=== PATIENT | female | born 1970 | race Caucasian/White ===

== ENCOUNTER 2024-10-08 11:05 | Emergency (ER) | payer OTHER, SELFPAY ==
--- OUTSIDE RECORDS SUMMARY | 2024-10-08 11:33 | XMS_ITS | Data Portability ---
Author Organization [place] - [facility] [employer] [employer] [facility] Address [address] [place] [address] Care Team Providers [employer] Name Role Phone MAYCOL MURILLO Primary Care Provider [facility] Medical Oncologist ARMANDO DE LA GARZA Urologist [facility] Neur ologist HANK Optician Assessment Encounter Date Assessment Date Assessment LastModified by Organization Details LastModified Time 12/11/2022 12/11/2022 52 y/o female pt that presents to establish care from and transfer from Mariam Castillo APN. PMH: bilateral mastectomy 07/02/2018, radiation 2019 with breast cancer, migraine headaches, and THOR. Enouraged pt to bring in copy of her most recent labs for review. Not available 12/11/2022 16:24:15 01/22/2023 01/22/2023 52 y/o female pt that presents to f/u on starting lexapro. PMH: bilateral mastectomy 07/02/2018, radiation 2019 with breast cancer, migraine headaches, and THOR. to f/u in 4-6 weeks for efficacy of wellbutrin. Not available 01/22/2023 12:17:58 04/05/2023 04/05/2023 52 y/o female pt that presents to f/u on starting bupropion. PMH: bilateral mastectomy 07/02/2018, radiation 2019 with breast cancer, migraine headaches, and THOR. pt to f/u in 3 months or sooner as needed for efficacy of increase her bupropion. Not available 04/05/2023 14:41:07 07/12/2023 07/12/2023 53 y/o female pt that presents to f/u on starting bupropion. PMH: bilateral mastectomy 07/02/2018, radiation 2019 with breast cancer, migraine headaches, and HTOR. Pt to f/u in 3-6 months. Not available 07/12/2023 13:54:43 04/02/2024 04/02/2024 53 y/o female pt that presents to f/u on starting bupropion. PMH: bilateral mastectomy 07/02/2018, radiation 2019 with breast cancer, migraine headaches, and THOR. Pt to f/u in 3-6 months. Not available 04/02/2024 11:32:00 Plan of Treatment Reminders Order Date Submit Date Provider Last Modified By Organization Details Last Modified Time Details Appointments None recorded. Lab urinalysis complete, reflex culture 2022 023 [email or web address] [employer] [facility], [address], [address], [place], [address], 3 15:50:41 pro BNP (pro B-type natriuretic peptide), serum or plasma 2023 024 SANDIEDeal Decor [facility], [address] [facility] [address], [address], [place], [address], 4 06:47:31 TSH + free T4, serum 2023 024 [employer] [facility], [address] [facility] [address], [place], [place], [address], 4 01:49:00 Referral None recorded. Procedures None recorded. Surgeries None recorded. Imaging None recorded. Medication Orders escitalopra m 10 mg tablet 2022 023 [facility], [address] [place] [address], [place], [address], 3 16:21:26 bupropion HCl XL 150 mg 24 hr tablet, extended release 2022 023 [email or web address] 0 [facility], [address] [place] [address], [address], 4 10:54:52 bupropion HCl XL 150 mg 24 hr tablet, extended release 2022 023 [email or web address] 0 [facility], [address] [place] [address], [address], 4 10:54:52 Wegovy 1.7 mg/0.75 mL subcutaneou s pen injector 2022 023 [email or web address] 0 [facility], [address] [place] [address], [address], 4 10:56:27 Wegovy 0.25 mg/0.5 mL subcutaneou s pen injector 2023 024 [facility], [address] [place] [address], [address], 4 18:01:18 Patient TargetsNo targets recorded. Patient InstructionsNo instructions recorded. Reason for Referral None Reported. Results Created Date Observation Date Name Description Value Unit Range Abnormal Flag Note LastModifiedBy Organization Detail LastModifiedTime 12/12/1912/11/2022 URINA LYSIS W/ MICRO REFLE X C color YELLOW yellow /color les Not Available [facility] (Lab) [address], [place], [address], 12/11/2022 18:11:30 12/12/19 23 12/11/2022 URINA LYSIS W/ MICRO REFLE X C appearance CLEAR clear Not Available [facility] (Lab) [address], [place], [address], 12/11/2022 18:11:30 12/12/19 23 12/11/2022 URINA LYSIS W/ MICRO REFLE X C pH 6 4.8-8. 0 Not Available [facility] (Lab) [address], [place], [address], 12/11/2022 18:11:30 12/12/19 23 12/11/2022 URINA LYSIS W/ MICRO REFLE X C sp gravity urine 1.020 1.015- 1.025 Not Available [facility] (Lab) [address], [place], [address], 12/11/2022 18:11:30 12/12/19 23 12/11/2022 URINA LYSIS W/ MICRO REFLE X C protein NEGATI VE negati ve Not Available [facility] (Lab) [address], [place], [address], 12/11/2022 18:11:30 12/12/19 23 12/11/2022 URINA LYSIS W/ MICRO REFLE X C glucose NEGATI VE negati ve Not Available [facility] (Lab) [address], [place], [address], 12/11/2022 18:11:30 12/12/19 23 12/11/2022 URINA LYSIS W/ MICRO REFLE X C ketone NEGATI VE negati ve Not Available [facility] (Lab) [address], [place], [address], 12/11/2022 18:11:30 12/12/19 23 12/11/2022 URINA LYSIS W/ MICRO REFLE X C bili NEGATI VE negati ve Not Available [facility] (Lab) [address], [place], [address], 12/11/2022 18:11:30 12/12/19 23 12/11/2022 URINA LYSIS W/ MICRO REFLE X C blood NEGATI VE negati ve Not Available [facility] (Lab) [address], [place], [address], 12/11/2022 18:11:30 12/12/19 23 12/11/2022 URINA LYSIS W/ MICRO REFLE X C nitrite NEGATI VE negati ve Not Available [facility] (Lab) [address], [place], [address], 12/11/2022 18:11:30 12/12/19 23 12/11/2022 URINA LYSIS W/ MICRO REFLE X C leukocyte esterase NEGATI VE negati ve Not Available [facility] (Lab) [address], [place], [address], 12/11/2022 18:11:30 12/12/19 23 12/11/2022 URINA LYSIS W/ MICRO REFLE X C urobili 0.2 eu normal /0.2-1 .0 Not Available [facility] (Lab) [address], [place], [address], 12/11/2022 18:11:30 12/12/19 23 12/11/2022 URINA LYSIS W/ MICRO REFLE X C UA micro Y Not Available [facility] (Lab) [address], [place], [address], 12/11/2022 18:11:30 12/12/19 23 12/11/2022 URINA LYSIS W/ MICRO REFLE X C leuk 0 /hpf 0-5 Not Available [facility] (Lab) [address], [place], [address], 12/11/2022 18:11:30 12/12/19 23 12/11/2022 URINA LYSIS W/ MICRO REFLE X C rbcua 0 /hpf 0-3 Not Available [facility] (Lab) [address], [place], [address], 12/11/2022 18:11:30 12/12/19 23 12/11/2022 URINA LYSIS W/ MICRO REFLE X C epith 1-6 /lpf squam Not Available [facility] (Lab) [address], [place], [address], 12/11/2022 18:11:30 12/12/19 23 12/11/2022 URINA LYSIS W/ MICRO REFLE X C casts NEGATI VE /lpf negati ve Not Available [facility] (Lab) [address], [place], [address], 12/11/2022 18:11:30 12/12/19 23 12/11/2022 URINA LYSIS W/ MICRO REFLE X C bacteria TRACE neg-tr mayra Not Available [facility] (Lab) [address], [place], [address], 12/11/2022 18:11:30 12/12/19 23 12/11/2022 URINA LYSIS W/ MICRO REFLE X C crystls NEGATI VE /lpf negati ve Not Available [facility] (Lab) [address], [place], [address], 12/11/2022 18:11:30 12/12/19 23 12/11/2022 URINA LYSIS W/ MICRO REFLE X C mucus 3+ neg-tr mayra Not Available [facility] (Lab) [address], [place], [address], 12/11/2022 18:11:30 12/12/19 23 12/11/2022 URINA LYSIS W/ MICRO REFLE X C other 0 Not Available [facility] (Lab) [address], [place], [address], 12/11/2022 18:11:30 Result Notes None recorded. Problems Name Problem SNOMED Code Status Onset Date Resolution Date Notes Provider Name and Address Organization Details Recorded Time Malignant tumor of breast 787694041 Active 2020 bilateral mastectom y / radiation treatment Not Available [facility] 3 09:29:23 Migraine 00433839 Active 2020 Not Available [facility] 3 09:29:23 Obstructi ve sleep apnea syndrome 47558521 Active 2020 Not Available [facility] 3 09:29:23 Restless legs 23548119 Active 2022 [place], [address] , [facility] 3 15:59:37 Malignant tumor of breast 630527633 Active 2022 [place], [address] , [facility] 3 15:59:56 Anxiety 39030610 Active 2022 [place], [address] , [facility] 3 16:07:09 Cloudy urine 5594823 Active 2022 [place], [address] , [facility] 3 16:17:26 Poor concentra tion 35183076 Active 2022 [place], [address] , [facility] 3 12:10:22 Obstructi ve sleep apnea of adult 32564931766 03 Active 2022 Malathi davis, [facility] 3 12:56:41 Contact dermatiti s caused by urushiol from [facility] micah 403742407 Active 2023 [place], [address] , [facility] 4 11:04:17 Fatigue 91780756 Active 2023 [place], [address] , [facility] 4 11:20:25 Edema of lower extremity 122874723 Active 2023 Maycol Murillo PA-C [address] [place], [address] , [facility] 4 11:30:54 Notes:CAROLA (Dr. De La Garza) Deyanira urned off 2014 Problem Notes None recorded. Procedures Surgical History Date Name Laterality Status Provider Name and Address Organization Details Recorded Time 0 Other completed Not Available [facility] 3 09:30:55 8 Masectomy completed Not Available [facility] 3 09:30:55 8 Breast Surgery completed Not Available [facility] 09/10 09:30:55 8 Breast Implants completed Not Available [facility] 09/10/2022 09:30:55 8 Breast Biopsy completed Not Available [facility] 2022 09:30:55 Kidney/Bladder Surgery completed Not Available [facility] 09/10/2022 09:30:55 Imaging Results None recorded. Procedure Notes None recorded. Medical Equipment None Reported. Allergies Allergen ID Allergen Name Allergen Category Reaction Reaction Severity Criticality Documentation Date Start Date Code Code System Note Provider Name and Address Organization Details Recorded Time 358957 letrozole medicatio n muscle cramps Not available Not available 09/10/2022 89549 RxNorm Not Available [facility] 3 09:30:21 598736 Compazine medicatio n other severe Not available 09/10/20221995 88047 6 RxNorm Not Available [facility] 3 09:30:21 Medications Name Sig Start Date Stop Date Status Note LastModified by Organization Details LastModified Time buspirone 5 mg tablet Take 1 tablet twice a day by oral route for 30 days. 12/11 completed Not Available Not Available Not Available anastrozole 1 mg tablet TAKE ONE Tablet BY MOUTH DAILY 01/03 completed Not Available Not Available Not Available hydrocodone 5 mg-acetamin ophen 325 mg tablet 08/03 completed Not Available Not Available Not Available sumatriptan 25 mg tablet Take one tablet at onset of migraine headache. May repeat dose in 2 hours if needed. active Not Available Not Available No t Available phentermine 37.5 mg tablet TAKE ONE Tablet BY MOUTH IN THE MORNING DIRECTED 01/03 completed Not Available Not Available Not Available triamcinolo ne acetonide 0.1 % topical cream apply A thin layer TO THE AFFECTED AREA topically TWICE DAILY FOR TWO WEEKS active Not Available Not Available No t Available butalbital- acetaminoph en-caffeine 50 mg-325 mg-40 mg tablet TAKE ONE Tablet BY MOUTH EVERY TWELVE HOURS NEEDED FOR HEADACHE OR FOR MIGRAINE DIRECTED 01/03 completed Not Available Not Available Not Available ketorolac 10 mg tablet Take 1 tablet (10 mg total) by mouth every 6 (six) hours as needed (migraine ) active Not Available Not Available No t Available metoclopram alla 5 mg tablet TAKE ONE Tablet BY MOUTH EVERY 6 HOURS as needed for nausea AND FOR MIGRAINE 04/05 completed Not Available Not Available Not Available exemestane 25 mg tablet Take 1 tablet (25 mg total) by mouth daily Take after a meal. active Not Available Not Available No t Available imiquimod 5 % topical cream packet USE 5x/week FOR 6 WEEKS 08/03 completed Not Available Not Available Not Available nortriptyli ne 10 mg capsule TAKE ONE CAPSULE BY MOUTH EVERY DAY AT BEDTIME AFTER 2 WEEKS MAY INCREASE TO 2 EVERY DAY AT BEDTIME IF NEEDED/TO LERATED 06/22 completed Not Available Not Available Not Available cyanocobala min (vit B-12) 1,000 mcg/mL injection solution INJECT 1ml INTRAMUSC ULARLY ONCE WEEKLY DIRECTED 07/12 completed Not Available Not Available Not Available triamcinolo ne acetonide 55 mcg nasal spray aerosol USE 1 SPRAY IN EACH NOSTRIL ONCE DAILY 04/02 completed Not Available Not Available Not Available gabapentin 300 mg capsule TAKE ONE CAPSULE BY MOUTH AT BEDTIME active Not Available Not Available No t Available gabapentin 100 mg capsule TAKE 1 TO 2 CAPSULES BY MOUTH EVERY DAY AT BEDTIME 04/05 completed Not Available Not Available Not Available ergocalcife rol (vitamin D2) 1,250 mcg (50,000 unit) capsule TAKE ONE CAPSULE BY MOUTH ONCE A WEEK 04/02 completed Not Available Not Available Not Available letrozole 2.5 mg tablet Take 1 tablet (2.5 mg total) by mouth daily 06/22 completed Not Available Not Available Not Available sertraline 50 mg tablet TAKE ONE Tablet BY MOUTH DAILY 01/03 completed Not Available Not Available Not Available tamoxifen 20 mg tablet Take 1 tablet (20 mg total) by mouth daily 01/22 completed Not Available Not Available Not Available rizatriptan 5 mg tablet Take 1 tablet (5 mg total) by mouth once as needed for migraine May repeat in 2 hours if unresolve d. Do not exceed 3 in 24 hours. active Not Available Not Available No t Available escitalopra m 10 mg tablet take 1 tablet once daily active Not Available Not Available No t Available bupropion HCl XL 150 mg 24 hr tablet, extended release take 1 tablet once daily active Not Available Not Available No t Available duloxetine 20 mg capsule,del ayed release Take 1 capsule every day by oral route at bedtime for 30 days. active Not Available Not Available No t Available duloxetine 30 mg capsule,del ayed release TAKE ONE CAPSULE BY MOUTH NIGHTLY 04/25 completed Not Available Not Available Not Available Acidophilus 100 m org. 08/03 completed Not Available Not Available Not Available alpha lipoic acid 200 mg 08/03 completed Not Available Not Available Not Available cholecalcif [place] (vitamin D3) 1,250 mcg (50,000 unit) capsule TAKE ONE CAPSULE BY MOUTH ONCE A WEEK IN addition TO over counter 4,000 UNITS DAILY active Not Available Not Available No t Available D3-2000 4000 units total 2020 active Not Available Not Available Not Avai lable B12 1000 ncg 08/03 completed Not Available Not Available Not Available bupropion HCl 150 mg tablet,12 hr sustained-r elease(smok ing deterrent) Take 2 tablets every day by oral route. active Not Available Not Available No t Available Xhance 93 mcg/actuati on breath activated aerosol active Not Available Not Available Not Available Ubrelvy 100 mg tablet TAKE AT ONSET OF MIGRAINE HEADACHE. MAY REPEAT DOSE X 1 IN 2 HOURS. DO NOT EXCEED 2 DOSES IN 1 DAY 01/22 completed Not Available Not Available Not Available Wegovy 1.7 mg/0.75 mL subcutaneou s pen injector INJECT 1.7 MG UNDER THE SKIN EVERY WEEK 04/02 completed Not Available Not Available Not Available Wegovy 1 mg/0.5 mL subcutaneou s pen injector Inject 1 mg every week by subcutane ous route for 90 days. active Not Available Not Available No t Available Wegovy 0.25 mg/0.5 mL subcutaneou s pen injector INJECT 0.25 MG UNDER THE SKIN EVERY WEEK active Not Available Not Available No t Available Wegovy 0.5 mg/0.5 mL subcutaneou s pen injector Inject 0.5 mg every week by subcutane ous route. 2023 active Not Available Not Available Not Avai lable Vitals Date Recorded Body height Body weight Body temperature Heart rate Respiratory rate Oxygen saturation Oxygen saturation in Arterial blood by Pulse oximetry Pain severity - 0-10 verbal numeric rating [Score] - Reported Systolic blood pressure Diastolic blood pressure Provider Name and Address Organization Details Last Updated DateTime 3 165.1 cm 11437.4 5 g 97.9 [degF] 93 /min 18 /min 98 % 98 % 0 102 mm[Hg] 58 mm[Hg] [facility] 3 15:40:46 Date Recorded Body height Body mass index (BMI) Body weight Body temperature Heart rate Respiratory rate Oxygen saturation Oxygen saturation in Arterial blood by Pulse oximetry Systolic blood pressure Diastolic blood pressure Provider Name and Address Organization Details Last Updated DateTime 3 165.1 cm 23.3 kg/m2 77149.0 1 g 98 [degF] 76 /min 18 /min 98 % 98 % 110 mm[Hg] 75 mm[Hg] Brittany Stubbs [place] [facility] 3 11:27:25 Date Recorded Body height Body mass index (BMI) Body weight Body temperature Heart rate Respiratory rate Oxygen saturation Oxygen saturation in Arterial blood by Pulse oximetry Systolic blood pressure Diastolic blood pressure Provider Name and Address Organization Details Last Updated DateTime 3 165.1 cm 24.1 kg/m2 66219.8 9 g 97.5 [degF] 88 /min 18 /min 98 % 98 % 102 mm[Hg] 72 mm[Hg] Lona Last [facility] 3 14:26:01 Date Recorded Body height Body mass index (BMI) Body weight Body temperature Heart rate Respiratory rate Oxygen saturation Oxygen saturation in Arterial blood by Pulse oximetry Pain severity - 0-10 verbal numeric rating [Score] - Reported Systolic blood pressure Diastolic blood pressure Provider Name and Address Organization Details Last Updated DateTime 3 165.1 cm 23.5 kg/m2 33135.5 7 g 97.1 [degF] 82 /min 18 /min 99 % 99 % 0 118 mm[Hg] 68 mm[Hg] [facility] 3 11:28:54 Date Recorded Body height Body mass index (BMI) Body weight Body temperature Heart rate Respiratory rate Oxygen saturation Oxygen saturation in Arterial blood by Pulse oximetry Pain severity - 0-10 verbal numeric rating [Score] - Reported Systolic blood pressure Diastolic blood pressure Provider Name and Address Organization Details Last Updated DateTime 4 165.1 cm 27.6 kg/m2 52715.3 3 g 98 [degF] 91 /min 18 /min 98 % 98 % 0 98 mm[Hg] 68 mm[Hg] [facility] 4 10:53:58 Social History Question Answer Notes LastModified by [employer] ion Details LastModified Time Tobacco Smoking Status Never Smoker Not Available [facility] 09/10/2022 09:30:24 Do You Have An Advance Directive? No [id number] Information not available 09/10/2022 What Is Your Level Of Alcohol Consumption? Occasional [id number] Information not available 09/10/2022 What Is Your Level Of Caffeine Consumption? Moderate [email or web address] Information not available 07/12/2023 How Much Tobacco Do You Chew? None [id number] Information not available 09/10/2022 What Is Your Code Status? Full Code [email or web address] Information not available 04/02/2024 In The 14 Days Before Symptom Onset, Have You Had Close Contact With A Laboratory-confir med COVID-19 While That Case Was Ill? No [id number] Information not available 09/10/2022 In The 14 Days Before Symptom Onset, Have You Had Close Contact With A Person Who Is Under Investigation For COVID-19 While That Person Was Ill? No [id number] Information not available 09/10/2022 What Type Of Diet Are You Following? REGULAR [id number] Information not available 09/10/2022 Do You Or Have You Ever Used E-cigarettes Or Vape? 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 No [id number] Information not available 09/10/2022 Which Of Your Hands Is Dominant? Right [id number] Information not available 09/10/2022 General Stress Level Low [id number] Information not available 09/10/2022 Do You Have A Medical Power Of Eye Care Professional? No [email or web address] Information not available 04/02/2024 What Was The Date Of Your Most Recent Tobacco Screening? 04/02/2024 Information not available 04/02/2024 What Is Your Relationship Status? Information not available 04/02/2024 Do You Or Have You Ever Used Smokeless Tobacco? Never Used Smokeless Tobacco [id number] Information not available 09/10/2022 How Much Tobacco Do You Smoke? No [id number].[id number] Information not available 09/10/2022 Do You Use Any Illicit Or Recreational Drugs? No Information not available 07/12/2023 Do You Use Sunscreen Routinely? Yes [id number] Information not available 09/10/2022 How Many Years Have You Smoked Tobacco? 0 [id number].[id number] Information not available 09/10/2022 Have You Recently Traveled Abroad? No [email or web address] Information not available 12/11/2022 Sex: Female Functional Status Question Answer Note LastModified by Organizat ion Details LastModified Time What is your exercise level? Occasional [id number] Information not available 09/10/2022 Mental Status None recorded. Family History Relationship Description Onset Age of this Age Resolved Age Notes LastModified by Organization Details LastModified Time Sister Malignant tumor of breast [id number] Not available 09/10/2022 09:28:47 Mother Malignant tumor of breast 59 [id number] Not available 09/10/2022 09:28:47 Father Disorder of kidney and/or ureter [id number].[id number] Not available 09/10/2022 09:28:47 Father Kidney disease [id number] Not available 09/10/2022 09:28:47 Maternal Grandmother Heart disease [id number] Not available 09/10/2022 09:28:47 Maternal Grandmother Arthritis [id number] Not available 09/10/2022 09:28:47 Medical History Condition Response RHEUMATIC FEVER N PROSTATE N RADIATION / CHEMOTHERAPY Y EYE PROBLEMS N CAROTID BLOCKAGE N FEMALE PROBLEMS / INFECTIONS N DEPRESSION (INCLUDING POST ) N BOWEL PROBLEMS N BACK / NECK PROBLEMS N HAVE YOU BEEN HOSPITALIZED OR SEEN IN [facility] IN THE PAST YEAR ? N MIGRAINES Y ATHEROSCLEROSIS N THYROID DISEASE N ULCERS N BREAST PROBLEMS Y DIALYSIS N OBESITY N ANEURYSM N OSTEOPOROSIS N URINARY/BLADDER/KIDNEY PROBLEMS Y ADDICTION CONCERNS N ARTHRITIS N USE OF BLOOD THINNERS N NO SIGNIFICANT PAST MEDICAL HISTORY N SKIN PROBLEMS Y GASTROINTESTINAL DISORDER N HEARTBURN / REFLUX N BLOOD CLOTS N ASTHMA N HEPATITIS / LIVER DISEASE N PULMONARY DISEASE N GOUT N SLEEP DISORDER N FATIGUE Y HERPES N DEMENTIA N VASCULAR DISEASE N DIZZINESS N KIDNEY DISEASE N HYPERTENSION N CARDIAC ARRHYTHMIA N CANCER: SPECIFY Y ANXIETY DISORDER N PNEUMONIA N PULMONARY EMBOLISM N BRONCHITIS N TUBERCULOSIS N Gynecological History Statement/Question Response Abnormal Pap N Date of Last Pap 08/11/2019 Date of Last Mammogram 07/02/2018 Current Control Method Sterilizati on Abortions 0 Obstetrics History GPAL:G 0 P 0 0 0 0 Immunizations Vaccine Type Date Status Note Provider Nam e and Address Organization Details Recorded Time Influenza, split virus, quadrivalent, preservative 1 completed Not Available [facility] 09/10/2022 09:30:12 SARS-COV-2 (COVID-19) vaccine, UNSPECIFIED 1 completed Not Available [facility] 09/10/2022 09:30:12 SARS-COV-2 (COVID-19) vaccine, UNSPECIFIED 1 completed Not Available [facility] 09/10/2022 09:30:12 SARS-COV-2 (COVID-19) vaccine, UNSPECIFIED 1 completed Not Available [facility] [facility] 09:30:12 Past Encounters Encounter ID Performer Location Encounter Start Date Encounter Closed Date Diagnosis/Indication Diagnosis SNOMED-CT Code Diagnosis ICD10 Code Diagnosis Note [id number] [place] [facility] [address] [place] [address] 01/03/2021 00:00:00 01/03/2021 11:39:59 [id number] [place] [facility] [address] [place] [address] 04/25/2021 00:00:00 04/25/2021 09:50:49 [id number] [place] [facility] [address] [place] [address] 08/03/2021 00:00:00 08/03/2021 18:25:45 [id number] [place] [facility] [address] [place] [address] 09/27/2021 00:00:00 09/27/2021 11:18:04 [id number] [place] [facility] [address] [place] [address] 12/05/2021 00:00:00 12/05/2021 12:28:37 [id number] [place] [facility] [address] [place] [address] 03/15/2022 00:00:00 03/15/2022 10:37:59 [id number] [place] [facility] [address] [place] [address] 06/22/2022 00:00:00 06/22/2022 10:57:14 [id number] Maycol Murillo PA-C [facility] [facility] [address] [place] [address] 12/11/2022 15:22:48 12/13/2022 13:03:47 Migraine [id number] G43.909 Pt is f/u with [place] neurology. Migraines are controlled currently, improved with gabapentin recently added for RLS symptoms. Malignant tumor of breast [id number] C50.919 Pt with hx of malignancy and mastectomy bilateral breasts in Obstructiv e sleep apnea syndrome [id number] G47.33 Pt with mild THOR not using her CPAP. Reportedly had a high CO2 on one of her labs, discussed this is most likely related to that. She is unable to tolerate but feels like she is sleeping well and her BP is controlled today. 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 Restless legs [id number] G 25.81 Pt is currently seeing neurology in [place], is taking gabapentin which she thinks is helping. Anxiety 79497634 F41.9 Pt with increased amounts of anxiety in the past few weeks, has been on several different meds in the past is requesting to get started on again. Cloudy urine [id number] R82 .90 Pt with c/o cloudy urine, will check UA today in the office. [id number] ERIN [address] [address] 01/22/2023 11:08:50 01/22/2023 12:14:27 Anxiety 77396250 F41.9 Pt with improved anxiety since starting lexapro 10mg, will continue this current dose. Adding wellbutrin for difficulty focusing, advised this can increase her anxiety and to call if it is not tolerable. Poor concentration 07082 005 R41.840 Pt with poor concentrat ion, ADHD self report scale ?? Discussed starting bupropion for poor concentrat ion, she is agreeable. Discussed side effects/ri sks/benefi ts. [id number] ERIN Child[address] [address] 04/05/2023 14:16:59 04/05/2023 14:42:59 Poor concentration 17333915 R41.840 Pt reports that the bupropion is helping with her concentrat ion. She has had minimal side effects. She does want to increase her dose. I discussed that increasing might increase her side effects, so will send in 150mg BID instead of the 300mg once daily. She is agreeable. [id number] [facility] [address] [place] [address] 07/12/2023 11:21:43 07/12/2023 12:25:37 Anxiety [id number] F41.9 Anxiety is controlled currently on lexapro 10mg, will continue. Obstructiv e sleep apnea syndrome 69843346 G47.33 Pt with mild THOR not using her CPAP as she cannot tolerate it well. Reportedly had a high CO2 on one of her labs, discussed this is most likely related to that. She is unable to tolerate but feels like she is sleeping well and her BP is controlled today. She is interested in an oral appliance, will find out who does that and refer. Migraine [id number] G43.90 9 Pt is f/u with [place] neurology. Migraines are controlled currently, improved with gabapentin recently added for RLS symptoms. Restless legs 33117920 G 25.81 Pt is currently seeing neurology in [place], is taking gabapentin which she thinks is helping. Poor concentration 19309 005 R41.840 Increased bupropion brom 150mg daily to BID is helping with her focus and is not increasing her anxiety at this time. Body mass index 25-29 - overweight [id number] Z68.29 When pt started on wegovy she had BMI of 29, she has lost a total of 37lbs since starting wegovy in 2020, will continue as long as she is having results. [id number] Maycol Murillo PA-C [facility] [address] [place] [address] 04/02/2024 10:35:29 04/02/2024 11:27:00 Anxiety 27469477 F41.9 Anxiety is controlled currently on lexapro 10mg, will continue. Obstructiv e sleep apnea syndrome 89725823 G47.33 Pt with mild THOR not using her CPAP as she cannot tolerate it well. Reportedly had a high CO2 on one of her labs, discussed this is most likely related to that. She is unable to tolerate but feels like she is sleeping well and her BP is controlled today. She is interested in an oral appliance, will find out who does that and refer. Migraine 85199144 G43.90 9 Pt is f/u with [place] neurology. Advised to discuss tiredness. Restless legs 78985716 G 25.81 Pt is currently seeing neurology in [place], is taking gabapentin which she thinks is helping. Poor concentration 12408 005 R41.840 Stable on bupropion 150mg BID. Body mass index 25-29 - overweight 641537359 Z68.29 When pt started on wegovy she had BMI of 29, she has lost a total of 37lbs since starting wegovy in 2020, will continue as long as she is having results. Fatigue 59832377 R53.83 Pt with persistent fatigue, she has had normal iron, b12 and cbc in the past 3-4 months that was WNL. kandis check thyroid labs. She is continuing to f/u with her sleep specialist as well. Edema of l ower extremity 182548722 R60.0 Pt with mild edema in bilateral LEs, she does have some GERMAIN/fatigu e, will check BNP for possible cardiac etiology. Will discuss echo when results come back Health Concerns Section Related Observation LastModified by Organization Detai ls LastModified Time None Recorded Concern Status LastModified by Organization Details LastModified Time None Recorded Advance Directives Directive N: Payers Encounter Date Sequence Insurance Name Policy Number Policy Astorga Covered Member ID Astorga Member ID Guarantor Name 12/11/2022 1 [facility]: [facility] (PP[facility] [id number] Geremias Jones [id number] Tamara Jones 01/22/2023 1 [facility]: [facility] (PPO) [id number] Geremias Jones [id number] Tamara Jones 04/05/2023 SLIDING FEE SCHEDULE - DISCOUNT Tamara Jones 07/12/2023 1 [employer] [id number] Tamara Jones [id number] Tamara Jones 04/02/2024 1 [employer] [id number] Tamara Jones [id number] Tamara Jones Notes Date Note Type Note Provider Name and Address Organization Details Recorded Time 12/11/2022 text/html 52 y/o female pt that [facility]H: bilateral mastectomy 07/02/2018, radiation 2019 with breast cancer, migraine headaches, and THOR. Pt main concern today is that she has dark/cloudy urine and is decreased in amount for the past couple weeks. Denies any urgency or burning. she does see Dr. De La Garza for chronic/frequent UTI. She also had an area burned off that had low chance of malignancy. Does not drink enough water per her own admission. Reports hx of breast cancer and bilateral mastectomy and radiation, continues to f/u with [facility]. She also has hx of migraines/RLS and f/u with neurology, Earline Juarez PA-C. Pt does not use her CPAP, reports that the sounds of the air moving in her mask keep her awake and she is not able to use it. reports that she does have some episodes of anxiety where she feels very nervous, has not been able to identify any triggers. wellness: deneen Cooper pap is up to date 09/2022 beny Murillo PA-C [address] [place], [address], [facility] 12/11/2022 16:25:25 01/22/2023 text/html 52 y/o female pt that presents to f/u on starting lexapro. PMH: bilateral mastectomy 07/02/2018, radiation 2019 with breast cancer, migraine headaches, and THOR. Pt reports that her anxiety is improved with the lexapro 10mg. STs that she still has some anxiety but not near as bad as before. She also reporting some trouble with procrastination and focus, she thinks she's had this since childhood. Reports that she gets distracted easily. I have over 200 projects at home that I need to finish. wellness: deneen Cooper pap is up to date 09/2022 beny Murillo PA-C [address] [place], [address], [facility] 01/22/2023 13:42:17 04/05/2023 text/html 52 y/o female pt that presents to f/u on starting buprpion. PMH: bilateral mastectomy 07/02/2018, radiation 2019 with breast cancer, migraine headaches, and THOR. Pt thinks that the bupropion does seem to be helping with her focus problem, but does think that she has more hyper symptoms like clicking her teeth together but is not bothersome. Wants to see about increasing her dose. Reports that she has been more motivated to plan and finish things. wellness: sees Kenneth pap is up to date 09/2022 vitalmaki Murillo PA-C [address] [place], [address], [facility] 04/05/2023 14:44:40 07/12/2023 text/html 53 y/o female pt that presents to f/u on starting bupropion. PMH: bilateral mastectomy 07/02/2018, radiation 2019 with breast cancer, migraine headaches, and THOR. Pt reports that her bupropion, taking two tabs 150mg, is working well for her. Sts that she is wondering if we can refill her Wegovy, was told by her pharmacy that she needed one but needed more information from her provider. Reports that she recently saw her oncologist, and had a breast cancer risk reduction score, and was told that she needs to stay on exemestane, though it does cause her some joint pain, weight gain and low energy. she has hx of double mastectomy and and radiation therapy. wellness: sees Kenneth pap is up to date 09/2022 vitalmaki Murillo PA-C [address] [place], [address], [facility] 07/12/2023 22:44:47 04/02/2024 text/html 53 y/o female pt that presents to f/u on starting bupropion. PMH: bilateral mastectomy 07/02/2018, radiation 2019 with breast cancer, migraine headaches, and THOR. Pt reports that she has still been taking bupropion and doing well. Sts that she has been very tired recently, started in early spring, has seen sleep medicine, has been trying to use her CPAP more consistently. She does not feel well rested. Sts that she has been very sleep while driving shortly after waking. She thought that it was possibly her weight, but hasn't been taking wegovy, and feels like her weight has started to come back very quickly. Has been off Wegovy for the past 3-4 months. Denies any diet changes, no new supplements or medication. Notices her tiredness mostly in the morning when she's driving, and when she gets home. Admits to some Will be getting labs done for her oncologist tomorrow. wellness: sees Riley and pap is up to date 09/2022 vitals stable Maycol Murillo PA-C [address] [place], [address], [facility] 04/02/2024 11:33:27 OBGyn Episode No OBEpisode recorded.
--- OUTSIDE RECORDS SUMMARY | 2024-10-08 11:33 | XMS_ITS | Clinical Summary ---
Author Organization [facility] Address [address] [place] [address] Care Team Providers Care Extension Supervisor Name Role Phone Unavailable Primary Care Provider Unavailabl e Social History Tobacco Use Types Packs/Day Years Used Date Smoking Tobacco: Never Assessed Comments Unknown Sex and Gender Information Value Date Recorded Sex Assigned at Not on file Legal Sex Female 12:54 PM [employer] Gender Identity Not on file Sexual Orientation Not on file Plan of Treatment Health Maintenance Due Date Last Done Comments Hepatitis C Virus (HCV) Screening 1969 Hepatitis B Immunization (1 of 3 - 19+ 3-dose series) 1988 Pap Smear 1990 Cervical Cancer Screening (CCS) 1999 HPV/Cotest 1999 Colonoscopy 2014 Colorectal Cancer Screening 2014 Cologuard 2019 Immunochemical Fecal Occult Blood 2019 Mammogram 2019 Pneumococcal Immunization (5 0+ years) (1 of 1 - PCV) 2019 Zoster Immunization (1 of 2) 2019 Influenza Immunization (#1) 05/03/202406/02, 07/18/2017 SARS-COV-2 Immunization ( season) 2024 Respiratory Syncytial Virus (RSV) Immunization (Adult) (1 - 1-dose 75+ series) 2044 DTaP/Tdap/Td Immunization Discontinued 10/19/2019 TdaP Immunization Completed 10/19/2019 Meningococcal Immunization (ACWY) Aged Out No longer eligible based on patient's age to complete this topic Pneumococcal Immunization Combined Aged Out No longer eligible based on patient's age to complete this topic Rotavirus Immunization Aged Out No lo nger eligible based on patient's age to complete this topic Insurance [employer] on file
--- OUTSIDE RECORDS SUMMARY | 2024-10-08 11:33 | XMS_ITS | Clinical Summary ---
Author Organization [facility] Address [address] [place] [address] Care Team Providers Care Residential Sales Manager Name Role Phone Maycol Forbes PA-C Primary Care Provider [phone] Medications Medication Sig Dispensed Refills Start Date End Date Status buPROPion (WELLBUTRIN) 150 MG XL tablet Take 1 tablet (150 mg) by mouth daily 90 tablet 1 08/10/2024 11/08/2024 Active Encounters Date Type Department Care Team Description 08/09/2024 [address]ill [id number] [place] [address] Maycol Forbes PA-C Medication Refill from Last 3 Months Social History Tobacco Use Types Packs/Day Years Used Date Smoking Tobacco: Never Assessed Sex and Gender Information Value Date Recorded Sex Assigned at Not on file Gender Identity Not on file Sexual Orientation Not on file Plan of Treatment Health Maintenance Due Date Last Done Comments HIV Screening 1970 Hepatitis C Screening ages 18 to 79 once 1969 MMR VACCINES (1 of 1 - Standard series) 1970 YEARLY WELLNESS EXAM 1972 DEPRESSION SCREENING 1981 HEPATITIS B VACCINES (1 of 3 - 19+ 3-dose series) 1988 CERVICAL CANCER SCREENING 1990 BREAST CANCER SCREENING 2009 Colon Cancer Screening 2014 LIPID TESTING 2014 Zoster Vaccine (Recombinant Vaccine) (1 of 2) 2019 Influenza Vaccine 04/02/2024 08/17/2021, , 06/18/2019, Additional history exists COVID-19 Immunization ( season) 2024 07/11/2021, 11/18/2020, 10/28/2020 ADULT TETANUS 10/19/2029 10/19/2019 HEPATITIS A VACCINES Aged Out No long er eligible based on patient's age to complete this topic HIB VACCINES Aged Out No longer eligi ble based on patient's age to complete this topic HPV VACCINES Aged Out No longer eligi ble based on patient's age to complete this topic IPV VACCINES Aged Out No longer eligi ble based on patient's age to complete this topic MENINGOCOCCAL VACCINE Aged Out No shay aysha eligible based on patient's age to complete this topic Pneumococcal Vaccine: Peds(0 to 5 Years) & At-Risk Patients (6 to 64 Years) Aged Out No longer eligi ble based on patient's age to complete this topic ROTAVIRUS VACCINES Aged Out No longer eligible based on patient's age to complete this topic Care Teams Residential Sales Manager Relationship Specialty Start Date End Date Maycol Forbes PA-C [address] [place] [phone] PCP - General Physician [employer] 10/05/24
--- OUTSIDE RECORDS SUMMARY | 2024-10-08 11:34 | XMS_ITS | Referral Summary ---
Author Organization [facility] Address [address] [place] [address] Care Team Providers Care Advertising Sales Agent Name Role Phone Baron Powelldior Dawn AUTOMOTIVE SOFTWARE ENGINEER-[employer]AT ASSEMBLY SUPERVISOR Unavailable Mariam Shore AUTOMOTIVE SOFTWARE ENGINEER-[employer]ERGLASS BOAT ASSEMBLY SUPERVISOR Primary Care Provi donal Source Comments [facility],non-owned Affiliates and Associated Physician Practices is amultiple site organization consisting of ambulatory clinics and hospital sitesin [place], [place], [place] and [place]. This disclosure is being madepursuant to the Care Everywhere program and may not contain all information available regarding this patient. Last updated 18.[facility] Encounters Date Type Department Care Team Description 09/25/2024 Travel 09/25/2024 3:30 PM AIRCONDITIONING DRAFTING OFFICER Office Visit [facility] - Family Medicine [address] [place] [phone] Mariam Shore AUTOMOTIVE SOFTWARE ENGINEER-ERIBERTO Wellness examination (Primary Dx); Vitamin D insufficiency; Migraine without aura and without status migrainosus, not intractable; THOR (obstructive sleep apnea); Need for vaccination; Screening for ischemic heart disease; Overweight; History of breast cancer from Last 3 Months Allergies Active Allergy Reactions Criticality Noted Date Comments Prochlorperazine Shortness of Breath High 09/18/2019 Medications * Be aware that medications may not be up to date on this document. Alwaysverify current medications with the patient. Medication Sig Dispensed Refills Start Date End Date Status tamoxifen (NOLVADEX) 20 MG tablet Take 20 mg by mouth every evening Active sertraline (ZOLOFT) 50 MG tablet Take 50 mg by mouth at bedtime Active VITAMIN D, CHOLECALCIFEROL , PO Take 5,000 mg by mouth once daily Active goserelin (ZOLADEX) 3.6 MG injection Inject 3.6 mg subcutaneously every 28 days Active aspirin-acetami nophen-caffeine 250-250-65 MG tablet Take 1 (one) tablet by mouth every 6 hours as needed for Headache Active ibuprofen (MOTRIN) 600 MG tablet Take 1 tablet by mouth every 6 hours as needed for Pain 60 tablet 09/28/2019 Active Cholecalciferol 1.25 MG (90991 UT) Take 50,000 Units by mouth every 7 days 04/06/2024 Active Cholecalciferol (Vitamin D-[address]) 25 MCG (1000 UT) Take 4 (four) tablets by mouth once daily Active thyroid ([place] Thyroid) 15 MG tablet Take 1 (one) tablet by mouth once daily Active Wegovy 0.25 MG/0.5ML pen Inject 0.5 (one-half) mg subcutaneously every 7 days 04/03/2024 Active gabapentin (Neurontin) 300 MG capsule Take 1 (one) capsule by mouth at bedtime 07/20/2024 Active Veozah 45 MG tablet Take 1 (one) tablet by mouth once daily 07/09/2024 Active buPROPion XL 24hr (Wellbutrin-XL) 150 MG tablet Take 2 (two) tablets by mouth once daily 08/10/2024 Active exemestane (Aromasin) 25 MG tablet Take 1 (one) tablet by mouth once daily 05/28/2024 Active ketorolac (Toradol) 10 MG tablet Take 1 (one) tablet by mouth as needed (for migraines) Active CPAP Use as directed Active Fluticasone Propionate (Xhance) 93 MCG/ACT EXHU Marathon 93 mcg into the nose as needed (congestion) Active ondansetron, disintegrating, (Zofran ODT) 4 MG tablet Take 1 (one) tablet by mouth every 6 hours as needed for Nausea/Vomiting Allow tablet to dissolve on the tongue 30 tablet 09/25/2024 Active omeprazole (PriLOSEC) 20 MG capsule Take 1 (one) capsule by mouth once daily 30 capsule 09/25/2024 Active tirzepatide (Zepbound) 2.5 MG/0.5ML injectionIndica tions:THOR (obstructive sleep apnea),Overweig ht,History of breast cancer Inject 2.5 (two and one-half) mg subcutaneously every 7 days 0.5 mL 2 09/25/2024 Active HYDROcodone-mayra taminophen (NORCO) 5-325 MG tablet Take 1 tablet by mouth every 6 hours as needed for Pain 15 tablet 09/28/2019 5 Discontinue d(List Clean-Up) HYDROcodone-mayra taminophen (NORCO) 5-325 MG tablet Take 1 (one) tablet by mouth every 8 hours as needed for Pain 15 tablet 07/15/2021 5 Discontinue d(List Clean-Up) Active Problems Problem Noted Date Diagnosed Date Migraine without aura and wi thout status migrainosus, not intractable 09/25/2024 Cystitis 09/25/2024 Family disruption 09/25/2024 Vitamin D insufficiency 04/06/2024 THOR (obstructive sleep apnea) 04/03/2024 Restless leg syndrome 02/06/2023 Chronic tension-type headache, not intractable 0 10/09/2022 Encounter for follow-up exam ination after completed treatment for malignant neoplasm 12/09/2018 Personal history of irradiation 12/09/2018 Malignant neoplasm of upper- outer quadrant of left breast in female, estrogen receptor positive 07/18/2018 Resolved Problems Problem Noted Date Diagnosed Date Resolved Date Dacryocystitis 09/25/2024 09/25/2024 Recurrent urinary tract infection 09/25/2024 09/25/2024 Streptococcus agalactiae infection 09/25/2024 09/25/2024 Varicella 09/25/2024 09/25/2024 long-term (current) use of a romatase inhibitors 11/19/2019 09/25/2024 H/O bilateral oophorectomy 10/19/2019 0 09/25/2024 History of bilateral mastectomy 10/19/2019 09/25/2024 History of kidney stones 10/19/2019 History of breast cancer 12/09/2018 Immunizations Name Administration Dates Next Due INFLUENZA VACCINE, TRIV. (AF AMADA, FLUZONE TRIVALENT; 6MO+) (IIV3) 06/10/2009 Covid Pfizer primary monoval ent 12+ yr 0.3mL Purple cap 07/11/2021 INFLUENZA VACCINE, CELL CULT URE, QUADR. (FLUCELVAX QUADRIVALENT; 6MO+) (CCIIV4) 08/17/2021,06/20/2020,06/04/2019, 017 INFLUENZA VACCINE, QUADR. (F LUZONE; FLULAVAL; FLUARIX; AFLURIA QUADRIVALENT; 6MO+), 0.5 ML (IIV4) 06/18/2019 INFLUENZA VACCINE, TRIV. (FL UZONE; FLULAVAL; FLUARIX; AFLURIA TRIVALENT; 6MO+), 0.5 ML (IIV3) 09/25/2024 TDAP (7yrs+) 10/19/2019 Social History Tobacco Use Types Packs/Day Years Used Date Smoking Tobacco: Never Smokeless Tobacco: Never Tobacco Cessation:Counseling Given: Not Answered Alcohol Use Standard Drinks/Week Comments Yes 0 (1 standard drink = 0.6 oz pur e alcohol) socially AUDIT-C Answer Date Recorded Q1: How often do you have a drink containing alc ohol? Never 07/15/2021 Average Number of Drinks Not on file 021 Frequency of Binge Drinking Not on file 07/03 PHQ-2 Answer Date Recorded Patient Health Questionnaire-2 Score 0 09/25/2024 Sex and Gender Information Value Date Recorded Sex Assigned at Not on file Gender Identity Not on file Sexual Orientation Not on file Last Filed Vital Signs Vital Sign Reading Time Taken Comments Blood Pressure 110/75 09/25/2024 3:33 PM AIRCONDITIONING DRAFTING OFFICER Pulse 87 09/25/2024 3:33 PM AIRCONDITIONING DRAFTING OFFICER Temperature 37 C (98.6 F) 09/25/2024 3:33 PM AIRCONDITIONING DRAFTING OFFICER Respiratory Rate 16 09/28/2019 2:12 PM AIRCONDITIONING DRAFTING OFFICER Oxygen Saturation 98% 09/25/2024 3:33 PM AIRCONDITIONING DRAFTING OFFICER Inhaled Oxygen Concentration - - Weight 77.4 kg (170 lb 9.6 oz) 09/25/2024 3:33 P M AIRCONDITIONING DRAFTING OFFICER Height 165.1 cm (5' 5 ) 09/25/2024 3:33 PM AIRCONDITIONING DRAFTING OFFICER Body Mass Index 28.39 09/25/2024 3:33 PM AIRCONDITIONING DRAFTING OFFICER Plan of Treatment Upcoming Encounters Date Type Department Care Team (Late st Contact Info) Description 10/16/2024 9:00 AM AIRCONDITIONING DRAFTING OFFICER Office Visit [facility] [id number] [place] [phone] Mariam Shore APRN-CNP [address] [place] [address] Ana Beltran DO [address] [place] [phone] 12/23/2024 9:00 AM CDT Office Visit [facility] [address] [place] [phone] Mariam Shore APRN-FIBERGLASS BOAT ASSEMBLY SUPERVISOR [address] [place] [address] Procedures Procedure Name Priority Date/Time Associated Diagnosis Comments COMPREHENSIVE METABOLIC PANEL STAT 07/15/2021 9:51 PM AIRCONDITIONING DRAFTING OFFICER from Last 3 Months or Most Recently Relevant to Health Maintenance Results * (ABNORMAL) COMPREHENSIVE METABOLIC PANEL (07/15/2021 9:51 PM AIRCONDITIONING DRAFTING OFFICER) Glucose 94 70 - 125 mg/dL 07/15/2021 10:19 PM AIRCONDITIONING DRAFTING OFFICER [facility] Sodium 140 136 - 145 mmol/L 07/15/2021 10:19 PM AIRCONDITIONING DRAFTING OFFICER [facility] Potassium 3.5 3.4 - 4.5 mmol/L 07/15/2021 10:19 PM AIRCONDITIONING DRAFTING OFFICER [facility] Chloride 104 98 - 107 mmol/L 07/15/2021 10:19 PM AIRCONDITIONING DRAFTING OFFICER [facility] CO2 25 22 - 29 mmol/L 07/15/2021 10:19 PM AIRCONDITIONING DRAFTING OFFICER [facility] Calcium 9.35 8.4 - 10.2 mg/dL 07/15/2021 10:19 PM AIRCONDITIONING DRAFTING OFFICER [facility] Anion Gap 15 10 - 20 mmol/L 07/15/2021 10:19 PM AIRCONDITIONING DRAFTING OFFICER [facility] BUN 20.3(H) 9.8 - 20.1 mg/dL 07/15/2021 10:19 PM AIRCONDITIONING DRAFTING OFFICER [facility] Creatinine 0.88 0.57 - 1.11 mg/dL 07/15/2021 10:19 PM AIRCONDITIONING DRAFTING OFFICER [facility] eGFR by MDRD >60 >60 mL/min/1.7 3m2 07/15/2021 10:19 PM AIRCONDITIONING DRAFTING OFFICER [facility] eGFR by MDRD >60 >60 mL/min/1.7 3m2 07/15/2021 10:19 PM AIRCONDITIONING DRAFTING OFFICER [facility] Alkaline Phosphatase 53 40 - 150 U/L 07/15/2021 10:19 PM AIRCONDITIONING DRAFTING OFFICER [facility] ALT 14 5 - 55 U/L 07/15/2021 10:19 PM AIRCONDITIONING DRAFTING OFFICER [facility] AST 20 5 - 34 U/L 07/15/2021 10:19 PM AIRCONDITIONING DRAFTING OFFICER [facility] Protein Total 6.6 6.4 - 8.3 gm/dL 07/15/2021 10:19 PM AIRCONDITIONING DRAFTING OFFICER [facility] Albumin 3.6 3.5 - 5.0 gm/dL 07/15/2021 10:19 PM AIRCONDITIONING DRAFTING OFFICER [facility] Globulin Total 3.0 2.6 - 4.0 gm/dL 07/15/2021 10:19 PM AIRCONDITIONING DRAFTING OFFICER [facility] Albumin/Globulin Ratio 1.2 0.9 - 1.6 07/15/2021 10:19 PM AIRCONDITIONING DRAFTING OFFICER [facility] Bilirubin Total 0.8 0.2 - 1.2 mg/dL 07/15/2021 10:19 PM AIRCONDITIONING DRAFTING OFFICER [facility] Blood BLOOD SPECIMEN / Unknown Venipuncture / Unknown 07/15/2021 9:51 PM AIRCONDITIONING DRAFTING OFFICER 07/15/2021 9:55 PM AIRCONDITIONING DRAFTING OFFICER Norm Poe MD LAB - CHEMISTRY OR DERABLES [facility] [address] from Last 3 Months or Most Recently Relevant to Health Maintenance Care Teams Advertising Sales Agent Relationship Specialty Start Date End Date Mariam Shore APRN-ERIBERTO [address] [place], [place] [id number] PCP - General Nurse Practitioner 09/25/24 Alondra Powell APRN-FIBERGLASS BOAT ASSEMBLY SUPERVISOR [address] [address] 07/15/21
--- OUTSIDE RECORDS SUMMARY | 2024-10-08 11:34 | XMS_ITS | Referral Summary ---
Author Organization [facility] Address [address] [place] [address] Care Team Providers Care Archeologist Name Role Phone Jeimy Parish MD PhD Unavailable [phone] Lily Wisdom MD Unavailable [phone] Cristina Espinoza IVF EMBRYOLOGIST Unavailable [phone] Octavia Jain MD Unavailable [phone] Maycol Forbes Primary Care Provider [phone] Encounters Date Type Department Care Team Description 10/02/2024 Orders Only [facility] Oncology [address] [place] [phone] Cristina Espinoza NP Malignant neoplasm of upper-outer quadrant of left breast in female, estrogen receptor positive (HCC) (Primary Dx); halfway (current) use of aromatase inhibitors; Vitamin D insufficiency 10/02/2024 12:30 PM CASINO GAMING INSPECTOR Infusion [address] [phone] halfway (current) use of aromatase inhibitors (Primary Dx); Malignant neoplasm of upper-outer quadrant of left breast in female, estrogen receptor positive (HCC) 10/02/2024 10:45 AM CASINO GAMING INSPECTOR Lab [address] [phone] Malignant neoplasm of upper-outer quadrant of left breast in female, estrogen receptor positive (HCC); halfway (current) use of aromatase inhibitors; Vitamin D insufficiency; Personal history of irradiation 10/02/2024 11:30 AM CASINO GAMING INSPECTOR Office Visit [facility] Oncology [address] [place] [address] Cristina Espinoza NP Itching (Primary Dx); halfway (current) use of aromatase inhibitors; Malignant neoplasm of upper-outer quadrant of left breast in female, estrogen receptor positive (HCC); Vitamin D insufficiency; Personal history of irradiation from Last 3 Months Allergies Active Allergy Reactions Criticality Noted Date Comments Prochlorperazine Dystonia,Shortness of breath High Medications cholecalciferol (VITAMIN D-3) 1,000 unit tablet Take 4 tablets (4,000 Units total) by mouth daily 4 tablets daily Active ZOLEDRONIC ACID IV Active metoclopramide (REGLAN) 5 mg tablet Take 1 tablet (5 mg total) by mouth every 6 (six) hours as needed (nausea/migrain e) 15 tablet 023 Active Additional Information Patient not taking.Reported on 10/02/2024 buPROPion XL (WELLBUTRIN XL) 300 mg 24 hr tablet Take 1 tablet (300 mg total) by mouth daily 023 Active rizatriptan (MAXALT) 5 mg tabletIndications :Migraine Take 1 tablet (5 mg total) by mouth once as needed for migraine May repeat in 2 hours if unresolved. Do not exceed 3 in 24 hours. 9 tablet 5 023 Active ketorolac (TORADOL) 10 mg tabletIndications :Migraine without aura and without status migrainosus, not intractable Take 1 tablet (10 mg total) by mouth every 6 (six) hours as needed (migraine) 30 tablet 024 Active gabapentin (NEURONTIN) 300 mg capsule TAKE 1 CAPSULE AT BEDTIME 90 capsule 024 Active Veozah tablet tablet Take 1 tablet (45 mg total) by mouth daily Active fluticasone propionate (Xhance) 93 mcg/actuation aerosol breath activated Administer 93 mcg into affected nostril(s) as needed Active ondansetron ODT (ZOFRAN-ODT) 4 mg disintegrating tablet DISSOLVE 1 TABLET IN MOUTH EVERY 6 HOURS NEEDED FOR NAUSEA AND VOMITING Active Zepbound 2.5 mg/0.5 mL pen injector Inject 0.5 mL (2.5 mg total) under the skin once a week 025 Active exemestane (AROMASIN) 25 mg tablet Take 1 tablet (25 mg total) by mouth daily 30 tablet 3 025 2025 Active exemestane (AROMASIN) 25 mg tablet Take 1 tablet (25 mg total) by mouth daily 90 tablet 3 023 2024 Discontinued cholecalciferol (VITAMIN D-3) 50,000 unit capsuleIndication s:Vitamin D Deficiency Take 1 capsule (50,000 Units total) by mouth once a week In addition to weekly dose for 12 weeks start taking Vitamin D3 over the counter 4,000 international units daily. 12 capsule 024 2024 Discontinued(T herapy completed) exemestane (AROMASIN) 25 mg tablet Take 1 tablet (25 mg total) by mouth daily 024 2024 Discontinued(R eorder) Active Problems Problem Noted Date Diagnosed Date Itching 10/02/2024 Vitamin D insufficiency 04/06/2024 THOR (obstructive sleep apnea) 04/03/2024 Restless leg syndrome 02/06/2023 Chronic tension-type headache, not intractable 0 10/09/2022 halfway (current) use of aromatase inhibitors 11/19/2019 Encounter for follow-up exam ination after completed treatment for malignant neoplasm 12/09/2018 History of breast cancer 12/09/2018 Personal history of irradiation 12/09/2018 Malignant neoplasm of upper- outer quadrant of left breast in female, estrogen receptor positive 07/18/2018 Cancer Staging:Pathologic stage from 07/02/2018:Stage IIIA(pT3, pN3b(sn), cM0, G2, ER: Positive, CO: Positive, HER2: Negative) - Signed by Jeimy Parish MD PhD on 08/16/2018 Clinical:Stage IIA(cT2, cN2b, cM0, G2, ER: Positive, CO: Positive, HER2: Negative) - Signed by Jeimy Parish MD PhD on 08/16/2018 Migraine without aura and wi thout status migrainosus, not intractable Immunizations Name Administration Dates Next Due Influenza, Quadrivalent, Sara l Culture-based MDCK, Preservative Free, Antibiotic Free, Intramuscular 08/17/2021,06/20/2020,06/04/2019,07/18 Influenza, Quadrivalent, Spl it, Preservative Free, Intramuscular 06/18/2019 Influenza, Trivalent, Cell Culture-based MDCK, Preservative Free, Antibiotic Free, Intramuscular 07/18/2017 Pfizer SARS-CoV-2 Monovalent Vaccination (12+ Yrs) PURPLE 11/18/2020,10/28/2020 Tdap 10/19/2019 Social History Tobacco Use Types Packs/Day Years Used Date Smoking Tobacco: Never Passive Smoke Exposure: Never Smokeless Tobacco: Never Tobacco Cessation:Counseling Given: Not Answered Alcohol Use Standard Drinks/Week Comments Yes 0 (1 standard drink = 0.6 oz pur e alcohol) occasional Comments No Sex and Gender Information Value Date Recorded Sex Assigned at Not on file Legal Sex Female 3:37 PM CDT Gender Identity Not on file Sexual Orientation Straight 07/20/2020 12 :36 PM CASINO GAMING INSPECTOR Last Filed Vital Signs Vital Sign Reading Time Taken Comments Blood Pressure 96/65 10/02/2024 11:20 AM CASINO GAMING INSPECTOR Pulse 90 10/02/2024 11:20 AM CASINO GAMING INSPECTOR Temperature 36.8 C (98.3 F) 10/02/2024 11:20 AM CASINO GAMING INSPECTOR Respiratory Rate 16 10/02/2024 11:20 AM CASINO GAMING INSPECTOR Oxygen Saturation 98% 10/02/2024 11:20 AM CASINO GAMING INSPECTOR Inhaled Oxygen Concentration - - Weight 76.3 kg (168 lb 4.8 oz) 10/02/2024 11:20 AM CASINO GAMING INSPECTOR Height 165.1 cm (5' 5 ) 10/02/2024 11:20 AM CASINO GAMING INSPECTOR Body Mass Index 28.01 10/02/2024 11:20 AM CASINO GAMING INSPECTOR Plan of Treatment Not on file Medical Devices Implanted Type Area Real Estate Associate Attorney Device Identifier Shelf Expiration Date Model / Serial / Lot Acel[employer] Lp [employer] [id number] Alloderm Perforate Regenerative Thick Medium 132sq Cm Matrix - [id number] Implanted:Qty: 1 on 07/02/2018 by Octavia Jain MD at [facility] Breast Right: Breast [employer] 05/02/2019 [id number] / / [id number] Alloderm Implanted:Qty: 1 on 07/02/2018 by Octavia Jain MD at [facility] Breast Right: Breast Life Cell [employer] 12/30/2018 / / [id number] Alloderm Implanted:Qty: 1 on 07/02/2018 by Octavia Jain MD at [facility] Breast Left: Breast [employer] 09/01/2019 / / [id number] [employer]el[employer] [id number] Alloderm Perforate Regenerative Thick Medium 132sq Cm Matrix - [id number] Implanted:Qty: 1 on 07/02/2018 by Octavia Jain MD at [facility] Breast Left: Breast [employer] 04/01/2020 [id number] / / [id number] Allergan Usa [employer] Ssx-700 Natrelle Inspira Smooth Shell Surface Extra Full Profile Implant Latex Free - [id number] - [id number] Implanted:Qty: 1 on 07/02/2018 by Octavia Jain MD at [facility] Breast Left: Breast [employer] 02/03/2023 [id number]-700 / [id number] / [employer] Ssx-700 Natrelle Inspira Smooth Shell Surface Extra Full Profile Implant Latex Free - [id number] - [id number] Implanted:Qty: 1 on 07/02/2018 by Octavia Jain MD at [facility] Breast Right: Breast [employer] SSX-700 / [id number] / Essure Pelvis Description:Essure was a dev ice for female sterilization. It is a metal coil which when placed into each fallopian tube induces fibrosis and blockage. Essure was designed as an alternative to tubal ligation. The Essure device is MRI compatible and appears as areas of linear signal void on both T1- and T2-weighted sequences Procedures Procedure Name Priority Date/Time Associated Diagnosis Comments EGFR STAT 10/02/2024 11:01 AM CASINO GAMING INSPECTOR Malignant neoplasm of upper-outer quadrant of left breast in female, estrogen receptor positive (HCC) halfway (current) use of aromatase inhibitors VITAMIN D 25 HYDROXY Routine 10/02/2024 11:01 AM CASINO GAMING INSPECTOR vermin exterminator (current) use of aromatase inhibitors Malignant neoplasm of upper-outer quadrant of left breast in female, estrogen receptor positive (HCC) Vitamin D insufficiency Personal history of irradiation PHOSPHORUS STAT 10/02/2024 11:01 AM CASINO GAMING INSPECTOR Malignant neoplasm of upper-outer quadrant of left breast in female, estrogen receptor positive (HCC) vermin exterminator (current) use of aromatase inhibitors COMPREHENSIVE METABOLIC PANEL STAT 10/02/2024 11:01 AM CASINO GAMING INSPECTOR Malignant neoplasm of upper-outer quadrant of left breast in female, estrogen receptor positive (HCC) vermin exterminator (current) use of aromatase inhibitors from Last 3 Months Results * eGFR (10/02/2024 11:01 AM CASINO GAMING INSPECTOR) eGFR 72 >=60 mL/min/1. 73 m2 Comment: Interpretive Data Reference Interval Normal >/= 90 mL/min/1.73m2 Mildly decreased* 60 - 89 mL/min/1.73m2 Mildly to moderately decreased 45 - 59 mL/min/1.73m2 Moderately to severely decreased 30 - 44 mL/min/1.73m2 Severely decreased 15 - 29 mL/min/1.73m2 Kidney Failure < 15 mL/min/1.73m2 *Relative to young adult level Estimated glomerular filtration rate is determined by the 2020 CKD-EPI equation recommended by the National Kidney Foundation (A Unifying Approach to GFR Estimation: Recommendations of the NKF-ASK Task Force on Reassessing the Inclusion of Race in Diagnosing Kidney Disease, JASN 202). The CKD-EPI equation should not be used for patients with unstable renal function and has not been validated in children and those over 70. Current interpretive data was last reviewed 2021. Blood 10/02/2024 11:0 1 AM CASINO GAMING INSPECTOR 10/02/2024 11:01 AM CASINO GAMING INSPECTOR us Cristina Espinoza NP LAB BLOOD ORDERABLES Fi nal Result [facility] [place] [address] * Vitamin D 25 hydroxy (10/02/2024 11:01 AM CASINO GAMING INSPECTOR) [facility] Vitamin D 25-OH 55 30 - 80 ng/mL Blood 10/02/2024 11:0 1 AM CASINO GAMING INSPECTOR 10/02/2024 12:32 PM CASINO GAMING INSPECTOR Cristina Espinoza IVF EMBRYOLOGIST LAB BLOOD ORDERABLES Fi nal Result Performing Organization Address City/[facility] [place] [address] * Phosphorus (10/02/2024 11:01 AM CASINO GAMING INSPECTOR) [facility] Phosphorus, pl 3.5 2.3 - 4.5 mg/dL Comment:Testing performed by : [address] [address] Blood 10/02/2024 11:0 1 AM CASINO GAMING INSPECTOR 10/02/2024 11:01 AM CASINO GAMING INSPECTOR Cristina Espinoza IVF EMBRYOLOGIST LAB BLOOD ORDERABLES Fi nal Result Performing Organization Address [facility] [place] [address] * Comprehensive metabolic panel (10/02/2024 11:01 AM CASINO GAMING INSPECTOR) [facility] Sodium 140 135 - 145 mmol/L Comment:Testing performed by : [address] [address] Potassium, pl 4.1 3.3 - 4.9 mmol/L [facility] Chloride 105 97 - 110 mmol/L [facility] CO2 32 22 - 32 mmol/L [facility] Anion gap 3 2 - 15 mmol/L [facility] BUN 12 6 - 25 mg/dL [facility] Creatinine 0.94 0.60 - 1.10 mg/dL [facility] Glucose 88 70 - 199 mg/dL [facility] Comment: Interpretive Data Fasting glucose >/= 126 mg/dl is diagnostic for diabetes. Fasting is defined as no caloric intake for at least 8 hours. Fasting glucose between 100 mg/dl to 125 mg/dl is diagnostic of prediabetes. In a patient with classic symptoms of hyperglycemia or hyperglycemic crisis, a random glucose >/= 200 mg/dl is diagnostic for diabetes. In the absence of unequivocal hyperglycemia, results should be confirmed by repeat testing. The classification and Diagnosis of Diabetes Diabetes Care 2021; 46: S19-S40. Current interpretive data was last revised 2022. Calcium 9.8 8.5 - 10.3 mg/dL [facility] Bilirubin, total 0.8 0.1 - 1.2 mg/dL [facility] Protein, pl 7.1 6.5 - 8.5 g/dL [facility] Albumin 4.2 3.5 - 5.0 g/dL [facility] Alk phos 60 40 - 130 Units/L [facility] ALT 14 7 - 45 Units/L [facility] AST 16 10 - 45 Units/L [facility] Blood 10/02/2024 11:0 1 AM CASINO GAMING INSPECTOR 10/02/2024 11:01 AM CASINO GAMING INSPECTOR us Cristina Espinoza NP LAB BLOOD ORDERABLES nal Result [facility] Department [place] [address] from Last 3 Months Insurance [employer]ET[employer] [facility]MO [facility] AETNA [facility] PPO Advance Directives For more information, please contact: [phone] * Full Code (Latest Code Status on File) Date Activated Date Inactivated Comments 07/02/2018 3:43 PM 07/03/2018 1:23 PM Care Teams Archeologist Relationship Specialty Start Date End Date Maycol Forbes PA [address] [place], [place] [id number] PCP - General Physician Elevator Worker 07/14/24 Jeimy Parish MD PhD [id number] [facility] [address] [place] [address] Radiation Oncologist Radiation Oncology 07/18/18 Lily Wisdom MD [address] [place] [address] Referring Physician Surgical Oncology 07/18/18 Cristina Espinoza NP [address] [facility] [address] Nurse Practitioner Medical Oncology 04/03/24 Octavia Jain MD [address] [place] [address] Referring Physician Plastic Surgery 04/03/24
--- OUTSIDE RECORDS SUMMARY | 2024-10-08 11:34 | XMS_ITS | Clinical Summary ---
Author Organization [facility] Address [address] [facility] [place] [address] Care Team Providers Care Tumbling Barrel Painter Name Role Phone Alondra Powell HELPER TEACHER-SHUTTLE HAND Unavailable Mariam Shore HELPER TEACHER-SHUTTLE HAND Primary Care Provi donal Source Comments [facility],non-owned Affiliates and Associated Physician Practices is amultiple site organization consisting of ambulatory clinics and hospital sitesin [place], [place], [place] and [place]. This disclosure is being madepursuant to the Care Everywhere program and may not contain all information available regarding this patient. Last updated 18.[facility] Allergies Active Allergy Reactions Criticality Noted Date [...] 60 tablet 09/28/2019 Active Cholecalciferol 1.25 MG (18525 UT) Take 50,000 Units by mouth every 7 days 04/06/2024 Active Cholecalciferol (Vitamin D-[address]) 25 MCG (1000 UT) Take 4 (four) tablets by mouth once daily Active thyroid (Colrain Thyroid) 15 MG tablet Take 1 (one) [...] Active Fluticasone Propionate (Xhance) 93 MCG/ACT EXHU Maribel 93 mcg into the nose as needed [...] agalactiae infection 09/25/2024 09/25/2024 Varicella 09/25/2024 09/25/2024 intermediate (current) use of a romatase inhibitors 11/19/2019 09/25/2024 H/O bilateral oophorectomy 10/19/2019 0 09/25/2024 History of bilateral mastectomy 10/19/2019 09/25/2024 History of kidney stones 10/19/2019 History of breast cancer 12/09/2018 Encounters Date Type Department Care Team Description 09/25/2024 3:30 PM OIL EXPELLER OPERATOR Office Visit [facility] Family Medicine [address] [place] [phone] Mariam Shore APRN-ERIBERTO Wellness examination (Primary Dx); Vitamin D insufficiency; Migraine without aura and without status migrainosus, not intractable; THOR (obstructive sleep apnea); Need for vaccination; Screening for ischemic heart disease; Overweight; History of breast cancer 09/25/2024 Travel from Last 3 Months Immunizations Name Administration Dates Next Due INFLUENZA VACCINE, TRIV. (AF LURIA, FLUZONE TRIVALENT; 6MO+) (IIV3) 06/10/2009 Covid Pfizer primary monoval ent 12+ yr 0.3mL Purple cap 07/11/2021 INFLUENZA VACCINE, CELL CULT URE, QUADR. (FLUCELVAX QUADRIVALENT; 6MO+) (CCIIV4) 08/17/2021,06/20/2020,06/04/2019, 017 INFLUENZA VACCINE, QUADR. (F LUZONE; FLULAVAL; FLUARIX; AFLURIA QUADRIVALENT; 6MO+), 0.5 ML (IIV4) 06/18/2019 INFLUENZA VACCINE, TRIV. (FL UZONE; FLULAVAL; FLUARIX; AFLURIA TRIVALENT; 6MO+), 0.5 ML (IIV3) 09/25/2024 TDAP (7yrs+) 10/19/2019 Family History Relation Name Status Comments Father Mother Alive Social History Tobacco Use Types Packs/Day Years [...] Comments Blood Pressure 110/75 09/25/2024 3:33 PM OIL EXPELLER OPERATOR Pulse 87 09/25/2024 3:33 PM OIL EXPELLER OPERATOR Temperature 37 C (98.6 F) 09/25/2024 3:33 PM OIL EXPELLER OPERATOR Respiratory Rate 16 09/28/2019 2:12 PM OIL EXPELLER OPERATOR Oxygen Saturation 98% 09/25/2024 3:33 PM OIL EXPELLER OPERATOR Inhaled Oxygen Concentration - - Weight 77.4 kg (170 lb 9.6 oz) 09/25/2024 3:33 P M OIL EXPELLER OPERATOR Height 165.1 cm (5' 5 ) 09/25/2024 3:33 PM OIL EXPELLER OPERATOR Body Mass Index 28.39 09/25/2024 3:33 PM OIL EXPELLER OPERATOR Plan of Treatment Upcoming Encounters Date Type Department Care Team (Late st Contact Info) Description 10/16/2024 9:00 AM OIL EXPELLER OPERATOR Office Visit [facility] [address] [place] [phone] Mariam Shore APRN-ERIBERTO [address] [place] [address] Ana Beltran DO [address] [place] [phone] 12/23/2024 9:00 AM CDT Office Visit [facility] [address] [place] [phone] Mariam Shore APRN-SHUTTLE HAND [address] [place] [address] Health Maintenance Due Date Last Done Comments COLOGUARD (AGES 45-75) - COLON CA SCREENING 1969 COLON MONITORING 1969 COLONOSCOPY - COLON CA SCREENING 1969 CT COLONOGRAPHY - COLON CA SCREENING 1969 Colorectal Cancer Screening 1969 FIT - COLON CA SCREENING 1969 FLEX SIG - COLON CA SCREENING 1969 LIPID TESTING 1969 PAP SMEAR 1969 HIV SCREENING 1984 HEPATITIS C SCREENING 04/11/1987 HEPATITIS B VACCINE (1 of 3 - 19+ 3-dose series) 1988 PNEUMOCOCCAL VACCINE 50+ (1 of 1 - PCV) 2019 ZOSTER VACCINE (1 of 2) 2019 COVID-19 VACCINE ( season) 2024 07/11/2021, 11/18/2020, 10/28/2020 SCREENING FOR DIABETES 09/25/2024 , 09/18/2019, 05/18/2015 DTAP/TDAP/TD VACCINES (2 - Td or Tdap) 10/19/2029 10/19/2019 DEPRESSION SCREENING Completed 09/25/2024 INFLUENZA VACCINE Completed 09/25/2024, , 06/20/2020, Additional history exists HIB VACCINE Aged Out No longer eligi ble based on patient's age to complete this topic HPV VACCINE Aged Out No longer eligi ble based on patient's age to complete this topic MENINGOCOCCAL (Group B) VACCINE Aged Out No longer eligible based on patient's age to complete this topic MENINGOCOCCAL VACCINE Aged Out No shay aysha eligible based on patient's age to complete this topic Procedures Procedure Name Priority Date/Time Associated Diagnosis Comments COMPREHENSIVE METABOLIC PANEL STAT 07/15/2021 9:51 PM OIL EXPELLER OPERATOR from Last 3 Months or Most Recently Relevant to Health Maintenance Results * (ABNORMAL) COMPREHENSIVE METABOLIC PANEL (07/15/2021 9:51 PM OIL EXPELLER OPERATOR) Glucose 94 70 - 125 mg/dL 07/15/2021 10:19 PM OIL EXPELLER OPERATOR [facility] Sodium 140 136 - 145 mmol/L 07/15/2021 10:19 PM OIL EXPELLER OPERATOR [facility] Potassium 3.5 3.4 - 4.5 mmol/L 07/15/2021 10:19 PM OIL EXPELLER OPERATOR [facility] Chloride 104 98 - 107 mmol/L 07/15/2021 10:19 PM OIL EXPELLER OPERATOR [facility] CO2 25 22 - 29 mmol/L 07/15/2021 10:19 PM OIL EXPELLER OPERATOR [facility] Calcium 9.35 8.4 - 10.2 mg/dL 07/15/2021 10:19 PM OIL EXPELLER OPERATOR [facility] Anion Gap 15 10 - 20 mmol/L 07/15/2021 10:19 PM OIL EXPELLER OPERATOR [facility] BUN 20.3(H) 9.8 - 20.1 mg/dL 07/15/2021 10:19 PM OIL EXPELLER OPERATOR [facility] Creatinine 0.88 0.57 - 1.11 mg/dL 07/15/2021 10:19 PM OIL EXPELLER OPERATOR [facility] eGFR by MDRD >60 >60 mL/min/1.7 3m2 07/15/2021 10:19 PM OIL EXPELLER OPERATOR [facility] eGFR by MDRD >60 >60 mL/min/1.7 3m2 07/15/2021 10:19 PM OIL EXPELLER OPERATOR [facility] Alkaline Phosphatase 53 40 - 150 U/L 07/15/2021 10:19 PM OIL EXPELLER OPERATOR [facility] ALT 14 5 - 55 U/L 07/15/2021 10:19 PM OIL EXPELLER OPERATOR [facility] AST 20 5 - 34 U/L 07/15/2021 10:19 PM OIL EXPELLER OPERATOR [facility] Protein Total 6.6 6.4 - 8.3 gm/dL 07/15/2021 10:19 PM OIL EXPELLER OPERATOR [facility] Albumin 3.6 3.5 - 5.0 gm/dL 07/15/2021 10:19 PM OIL EXPELLER OPERATOR [facility] Globulin Total 3.0 2.6 - 4.0 gm/dL 07/15/2021 10:19 PM OIL EXPELLER OPERATOR [facility] Albumin/Globulin Ratio 1.2 0.9 - 1.6 07/15/2021 10:19 PM OIL EXPELLER OPERATOR [facility] Bilirubin Total 0.8 0.2 - 1.2 mg/dL 07/15/2021 10:19 PM OIL EXPELLER OPERATOR [facility] Blood BLOOD SPECIMEN / Unknown Venipuncture / Unknown 07/15/2021 9:51 PM OIL EXPELLER OPERATOR 07/15/2021 9:55 PM OIL EXPELLER OPERATOR Norm Poe MD LAB - CHEMISTRY OR DERABLES Performing Organization Address City/State/[facility] Co de Phone Number [facility] [address] from Last 3 Months or Most Recently Relevant to Health Maintenance Care Teams Tumbling Barrel Painter Relationship Specialty Start Date End Date Mariam Shore APRN-ERIBERTO [address] [place] [address] PCP - General Nurse Practitioner 09/25/24 Alondra Powell APRN-SHUTTLE HAND [address] [id number] 07/15/21
--- OUTSIDE RECORDS SUMMARY | 2024-10-08 11:34 | XMS_ITS | Data Portability ---
Author Organization [facility], ULTIMED PLUS 1 Address [address] [place] [address] Assessment No assessment recorded. Plan of Treatment Reminders Order Date Submit Date Provider Last Modified By Organization Details Last Modified Time Details Appointments None recorded. Lab urinalysis , dipstick 2013 014 [email or web address] In-House Results, For Internal Use Only, Do Not Delete/merge, [id number] 4 10:56:54 colony count, urine culture 2013 014 [email or web address] Not available 4 12:14:28 urinalysis , dipstick 2013 014 [email or web address] 8 In-House Results, For Internal Use Only, Do Not Delete/merge, [id number] 4 13:09:48 culture, urine and susceptibi lity 2013 014 [email or web address] 8 [facility] (Lab), [address] [place] [address] [place], [address], 4 13:09:48 urinalysis , dipstick 2013 014 [email or web address] 8 In-House Results, For Internal Use Only, Do Not Delete/merge, [id number] 4 12:00:09 Referral None recorded. Procedures None recorded. Surgeries None recorded. Imaging None recorded. Medication Orders Bactrim DS 800 mg-160 mg tablet 2013 014 [email or web address] [facility], [address] [place] [address], [place], [address], 4 11:09:26 Pyridium 200 mg tablet 2013 014 INTERFACE [facility], [address] [place] [address], [address], 4 11:07:26 Bactrim DS 800 mg-160 mg tablet 2013 014 INTERFACE [facility], [address] [place] [address], [address], 4 11:25:15 Augmentin 875 mg-125 mg tablet 2015 016 DBA_PATCH_ [id number] [facility], [address] [place] [address], [address], 6 04:03:45 albuterol sulfate HFA 90 mcg/actuat ion aerosol inhaler 2015 016 DBA_PATCH_ [id number] [facility], [address] [place] [address], [address], 6 04:03:45 Patient TargetsNo targets recorded. Patient InstructionsNo instructions recorded. Reason for Referral None Reported. Results Created Date Observation Date Name Description Value Unit Range Abnormal Flag Note LastModifiedBy Organization Detail LastModifiedTime 12/12/19 14 12/11/2013 urina lysis , dipst ick Leukocytes Negati ve Not Available In-House Results For Internal Use Only, Do Not Delete/merge, [id number] 12/11/2013 12:00:09 12/12/19 14 12/11/2013 urina lysis , dipst ick Nitrite negati ve Not Available In-House Results For Internal Use Only, Do Not Delete/merge, [id number] 12/11/2013 12:00:09 12/12/19 14 12/11/2013 urina lysis , dipst ick Urobilinogen .2 Not Available In-Ho use Results For Internal Use Only, Do Not Delete/merge, [id number] 12/11/2013 12:00:09 12/12/19 14 12/11/2013 urina lysis , dipst ick Protein Negati ve Not Available In-House Results For Internal Use Only, Do Not Delete/merge, 12/11/2013 12:00:09 12/12/19 14 12/11/2013 urina lysis , dipst ick pH 7.5 Not Available In-House Results For Internal Use Only, Do Not Delete/merge, 12/11/2013 12:00:09 12/12/19 14 12/11/2013 urina lysis , dipst ick Blood Negati ve Not Available In-House Results For Internal Use Only, Do Not Delete/merge, 12/11/2013 12:00:09 12/12/19 14 12/11/2013 urina lysis , dipst ick Specific [place]ra 1.020 Not Available In-Dhruv se Results For Internal Use Only, Do Not Delete/merge, 12/11/2013 12:00:09 12/12/19 14 12/11/2013 urina lysis , dipst ick Ketone Trace Not Available In-House Results For Internal Use Only, Do Not Delete/merge, 12/11/2013 12:00:09 12/12/19 14 12/11/2013 urina lysis , dipst ick Bilirubin Negati ve Not Available In-House Results For Internal Use Only, Do Not Delete/merge, 12/11/2013 12:00:09 12/12/19 14 12/11/2013 urina lysis , dipst ick Glucose Negati ve Not Available In-House Results For Internal Use Only, Do Not Delete/merge, 12/11/2013 12:00:09 12/12/19 14 12/11/2013 urina lysis , dipst ick Appearance Clear Not Available In-Hous e Results For Internal Use Only, Do Not Delete/merge, 12/11/2013 12:00:09 12/12/19 14 12/11/2013 urina lysis , dipst ick Color Yellow Not Available In-House Results For Internal Use Only, Do Not Delete/merge, 12/11/2013 12:00:09 11/25/19 14 11/24/2013 urina lysis , dipst ick Blood Large Not Available In-House Results For Internal Use Only, Do Not Delete/merge, 11/24/2013 11:43:20 11/25/19 14 11/24/2013 urina lysis , dipst ick Specific [place] 1.025 Not Available In-Dhruv se Results For Internal Use Only, Do Not Delete/merge, 11/24/2013 11:43:20 11/25/19 14 11/24/2013 urina lysis , dipst ick Glucose Negati ve Not Available In-House Results For Internal Use Only, Do Not Delete/merge, 11/24/2013 11:43:20 11/07/19 14 11/06/2013 urina lysis , dipst ick Leukocytes Large Not Available In-Hous e Results For Internal Use Only, Do Not Delete/merge, 11/06/2013 10:43:29 11/07/19 14 11/06/2013 urina lysis , dipst ick Nitrite negati ve Not Available In-House Results For Internal Use Only, Do Not Delete/merge, 11/06/2013 10:43:29 11/07/19 14 11/06/2013 urina lysis , dipst ick Urobilinogen .2 Not Available In-Ho use Results For Internal Use Only, Do Not Delete/merge, 11/06/2013 10:43:29 11/07/19 14 11/06/2013 urina lysis , dipst ick Protein 100 Not Available In-House Results For Internal Use Only, Do Not Delete/merge, 11/06/2013 10:43:29 11/07/19 14 11/06/2013 urina lysis , dipst ick pH 7.0 Not Available In-House Results For Internal Use Only, Do Not Delete/merge, 11/06/2013 10:43:29 11/07/19 14 11/06/2013 urina lysis , dipst ick Blood Large Not Available In-House Results For Internal Use Only, Do Not Delete/merge, 11/06/2013 10:43:29 11/07/19 14 11/06/2013 urina lysis , dipst ick Specific [place] 1.020 Not Available In-Dhruv se Results For Internal Use Only, Do Not Delete/merge, 11/06/2013 10:43:29 11/07/19 14 11/06/2013 urina lysis , dipst ick Ketone Negati ve Not Available In-House Results For Internal Use Only, Do Not Delete/merge, [id number] 11/06/2013 10:43:29 11/07/19 14 11/06/2013 urina lysis , dipst ick Bilirubin Negati ve Not Available In-House Results For Internal Use Only, Do Not Delete/merge, [id number] 11/06/2013 10:43:29 11/07/19 14 11/06/2013 urina lysis , dipst ick Glucose Negati ve Not Available In-House Results For Internal Use Only, Do Not Delete/merge, [id number] 11/06/2013 10:43:29 11/07/19 14 11/06/2013 urina lysis , dipst ick Appearance Cloudy Not Available In-Hous e Results For Internal Use Only, Do Not Delete/merge, [id number] 11/06/2013 10:43:29 11/07/19 14 11/06/2013 urina lysis , dipst ick Color Dark Yellow Not Available In-House Results For Internal Use Only, Do Not Delete/merge, [id number] 11/06/2013 10:43:29 Result Notes None recorded. Problems Name Problem SNOMED Code Status Onset Date Resolution Date Notes Provider Name and Address Organization Details Recorded Time Family disruption 73063746 Active Not Available [facility] 3 03:38:26 Streptococcus agalactiae infection 280824850 Active Not Available [facility] 3 03:38:26 Varicella 87273512 Active Not Available [facility] 3 03:38:27 Urinary tract infectious disease 96848744 Active Nam Prajapati MD [address], [place], [address] , [facility] 4 10:56:53 Dacryocystiti s 48152725 Active Not Available [facility] 3 03:38:28 Cellulitis and abscess of upper arm 776991150 Active Not Available [facility] 3 03:38:28 Cystitis 98012395 Active Angy davis, [facility] [place] 4 12:00:09 Recurrent urinary tract infection 534416854 Active Ida Walters [facility] 4 12:07:43 Contact dermatitis due to plants, except food Active Not Available [facility] 3 03:38:24 Problem Notes None recorded. Medical Equipment None Reported. Allergies Allergen ID Allergen Name Allergen Category Reaction Reaction Severity Criticality Documentation Date Start Date Code Code System Note Provider Name and Address Organization Details Recorded Time 5081 Compazine medicatio n Not available Not available Not available 11/06/201358789 6 RxNorm Not Available Not Available Not Available Medications Name Sig Start Date Stop Date Status Note LastModified by Organization Details LastModified Time phenazopyri dine 200 mg tablet Take 1 tablet 3 times a day by oral route as directed. 03/19 completed Not Available Not Available Not Available ciprofloxac in 500 mg tablet active Not Available Not Available Not Available sulfamethox azole 800 mg-trimetho prim 160 mg tablet Take 1 tablet every 12 hours by oral route as directed for 7 days. 03/19 completed Not Available Not Available Not Available [place] Thyroid 15 mg tablet active Not Available Not Available No t Available oxycodone-a cetaminophe n 5 mg-325 mg tablet active Not Available Not Available No t Available phenazopyri dine 100 mg tablet active Not Available Not Available Not Available sertraline 25 mg tablet active Not Available Not Available Not Available sertraline 50 mg tablet active Not Available Not Available Not Available amoxicillin 875 mg-potassiu m clavulanate 125 mg tablet Take 1 tablet every 12 hours by oral route with meals for 10 days. active Not Available Not Available No t Available nitrofurant oin monohydrate /macrocryst als 100 mg capsule active Not Available Not Available Not Available vitamin B complex active Not Available Not Available Not Available Vitamin D active Not Available Not Kaley ilable Not Available ProAir HFA 90 mcg/actuati on aerosol inhaler Inhale 2 puffs every 4 hours by inhalatio n route as directed for 10 days. active Not Available Not Available No t Available Vitals Date Recorded Body height Body weight Body mass index (BMI) Respiratory rate Body temperature Systolic blood pressure Diastolic blood pressure Provider Name and Address Organization Details Last Updated DateTime 6 165.1 cm 79655.7 1 g 23.8 kg/m2 12 /min 98.1 [degF] 98 mm[Hg] 60 mm[Hg] Christinelaina Sheridan [facility] [place] 6 12:06:13 Date Recorded Body height Body weight Body mass index (BMI) Heart rate Respiratory rate Body temperature Systolic blood pressure Diastolic blood pressure Provider Name and Address Organization Details Last Updated DateTime 4 165.1 cm 72122.8 9365 g 24.1 kg/m2 81 /min 12 /min 97.7 [degF] 103 mm[Hg] 63 mm[Hg] Ida Walters [facility] 4 10:43:29 Date Recorded Body height Body weight Body mass index (BMI) Heart rate Respiratory rate Body temperature Systolic blood pressure Diastolic blood pressure Provider Name and Address Organization Details Last Updated DateTime 4 165.1 cm 74989.6 7076 g 24.6 kg/m2 76 /min 12 /min 98 [degF] 115 mm[Hg] 72 mm[Hg] Chantel Gonzales [facility] [place] 4 11:09:25 Social History None recorded. Functional Status None recorded. Mental Status None recorded. Family History Nothing Reported. Medical History No medical history recorded. Gynecological HistoryNo gynecological history recorded. Obstetrics History GPAL:G 0 P 0 0 0 0 Immunizations Vaccine Type Date Status Note Provider Nam e and Address Organization Details Recorded Time Influenza, split virus, trivalent, preservative 9 completed Not Available Critical [facility] hospital 04/22/2013 03:30:49 Past Encounters Encounter ID Performer Location Encounter Start Date Encounter Closed Date Diagnosis/Indication Diagnosis SNOMED-CT Code Diagnosis ICD10 Code Diagnosis Note [id number] [facility]LTIMED PLUS [address] [place] [address] [place] [address] 10/19/2008 12:12:01 10/19/2008 12:12:21 Varicella 83304237 83238 ULTIMED PLUS [address] [place] [address] [place] [address] 03/30/2009 10:53:46 03/30/2009 11:37:35 Contact dermatitis due to plants, except food 75201860 14563 ULTIMED PLUS [address] [place] [address] [place] [address] 06/10/2009 14:52:13 06/10/2009 16:23:52 Influenza vaccine needed 5545487799 106 Contact de rmatitis due to plants, except food 78294507 09959 ULTIMED PLUS [address] [place] [address] [place] [address] 01/02/2010 16:16:59 01/02/2010 16:43:38 Dacryocystitis 55173319 12481 ULTIMED PLUS [address] [place] [address] [place] [address] 02/05/2011 16:00:15 02/05/2011 17:26:56 Family disruption 72860777 89195 ULTIMED PLUS [address] [place] [address] [place] [address] 04/23/2012 10:06:47 04/23/2012 11:54:29 Urinary tract infectious disease 31322920 88678 ULTIMED PLUS [address] [place] [address] [place] [address] 04/28/2012 13:36:57 04/28/2012 17:19:27 Cellulitis and abscess of upper arm 135756671 28651 ULTIMED PLUS [address] [place] [address] [place] [address] 04/23/2012 00:00:00 04/22/2013 03:30:50 Streptococcus agalactiae infection 115318055 [id number] Chantel Gonzales ULTIMED PLUS [address] [place] [address] [place] [address] 11/06/2013 09:50:43 11/06/2013 11:36:21 Urinary tract infectious disease 44963519 [id number] Angy Carrillo ULTIMED PLUS [address] [place] [address] [place] [address] 11/24/2013 10:33:56 11/24/2013 11:41:57 Cystitis 36055059 [id number] Angy Carrillo ULTIMED PLUS [address] [place] [address] [place] [address] 12/11/2013 11:52:37 12/11/2013 12:03:51 Cystitis 75472061 [id number] Ruslan Edmonds ULTIMED PLUS [address] [place] [address] [place] [address] 03/19/2016 12:00:02 03/19/2016 12:16:27 Acute sinusitis 84411181 J01.90 Health Concerns Section Related Observation LastModified by Organization Detai ls LastModified Time None Recorded Concern Status LastModified by Organization Details LastModified Time None Recorded Advance Directives Directive None Recorded Payers Encounter Date Sequence Insurance Name Policy Number Policy Astorga Covered Member ID Astorga Member ID Guarantor Name 04/28/2012 1 [place] [id number] Tamara L Halbin [id number] Tamara L Halbin 11/06/2013 1 [place] [id number] Tamara L Halbin [id number] Tamara L Halbin 11/24/2013 1 [place] [id number] Tamara L Halbin [id number] Tamara L Halbin 12/11/2013 1 [place] [id number] Tamara L Halbin [id number] Tamara L Halbin 03/19/2016 1 [place] [id number] Tamara L Halbin [id number] Tamara L Halbin Notes Date Note Type Note Provider Name and Address Organization Details Recorded Time 03/19/2016 text/html Pt states that Saturday03/17/16 her throat started to be strachey and now it is sore and she is coughing up some philem not sure if it is colored and states that her chest is now getting tight Ruslan Edmonds [address] [facility], [place], [address], [facility] 03/19/2016 12:14:52 OBGyn Episode No OBEpisode recorded.
--- OUTSIDE RECORDS SUMMARY | 2024-10-08 11:34 | XMS_ITS | Encounter Summary ---
Author Organization [facility] Address [address] [place] [address] Care Team Providers Care Intake Clinician Name Role Phone Alondra Powell NP Primary Care Provider Jeimy Parish MD PhD Unavailable [phone] Lily Wisdom MD Unavailable [phone] Carri Yoon MD Unavailable [phone] Mariam Castillo NP Primary Care Provider [phone] Maycol Forbes Primary Care Provider [phone] Cristina Espinoza NP Unavailable [phone] Cristina Espinoza NP Unavailable [phone] Octavia Jain MD Unavailable [phone] Maycol Forbes Primary Care Provider [phone] Encounter Details Date Type Department Care Team (Late st Contact Info) Description 07/03/2018 Documentation [facility] Case Management [id number] [address] [address] Nevaeh Donaldson, BILLIE Social History Tobacco Use Types Packs/Day Years Used Date Smoking Tobacco: Never Smokeless Tobacco: Never Alcohol Use Standard Drinks/Week Comments Yes 0 (1 standard drink = 0.6 oz pur e alcohol) occasional Comments Unknown Sex and Gender Information Value Date Recorded Sex Assigned at Not on file Legal Sex Female 3:37 PM CDT Gender Identity Not on file Sexual Orientation Straight 07/20/2020 12 :36 PM SAL[employer] documented as of this encounter Miscellaneous Notes * Plan of Care - Nevaeh Donaldson RN - 07/03/2018 3:39 PM CDT Discussed home health with patient. She feels confident with [facility] care and prefers not to have home health at this time. Instructed patient to notify MD if she has needs when she is at home. documented in this encounter Plan of Treatment Not on file documented as of this encounter Visit Diagnoses Not on filedocumented in this encounter Care Teams Intake Clinician Relationship Specialty Start Date End Date Alondra Powell NP PCP - General Sales And Service Consultant 05/16/18 03/27/21 Mariam Castillo NP [address] [place], [place] [address] PCP - General Nurse Practitioner 03/28/21 02/05/23 Maycol Forbes PA [address] [place], [place] [address] PCP - General Physician Senior Front End Web Developer 02/06/23 07/13/24 Maycol Forbes PA [address] [place], [place] [address] PCP - General Physician Senior Front End Web Developer 07/14/24 Jeimy Parish MD PhD [address] [facility] [address] [place] [address] Radiation Oncologist Radiation Oncology 07/18/18 Lily Wisdom MD [address] [place] [address] Referring Physician Surgical Oncology 07/18/18 Carri Yoon MD [address] [place] [address] Medical Oncologist/Watchmaker Apprentice Medical Oncology 12/09/18 06/17/23 Cristina Espinoza NP [address] [place] [address] Nurse Practitioner Medical Oncology 04/03/24 04/03/24 Cristina Espinoza NP [address] [place] [address] Nurse Practitioner Medical Oncology 04/03/24 Octavia Jain MD [address] [place] [address] Referring Physician Plastic Surgery 04/03/24 documented as of this encounter
--- OUTSIDE RECORDS SUMMARY | 2024-10-08 11:34 | XMS_ITS | Clinical Summary ---
Author Organization [facility] Address [facility] [place] [address] Care Team Providers Care Shingle Sawyer Name Role Phone Jeimy Parish MD PhD Unavailable [phone] Lily Wisdom MD Unavailable [phone] Cristina Espinoza NP Unavailable [phone] Octavia Jain MD Unavailable [phone] Maycol Forbes Primary Care Provider [phone] Allergies Active Allergy Reactions Criticality Noted Date [...] tablet (45 mg total) by mouth daily 024 Active fluticasone propionate (Xhance) 93 mcg/actuation aerosol [...] Chronic tension-type headache, not intractable 0 10/09/2022 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 11/19/2019 Encounter for follow-up exam ination after completed treatment for malignant neoplasm 12/09/2018 History of breast cancer 12/09/2018 Personal history of irradiation 12/09/2018 Malignant neoplasm of upper- outer quadrant of left breast in female, estrogen receptor positive 07/18/2018 Cancer Staging:Pathologic stage from 07/02/2018:Stage IIIA(pT3, pN3b(sn), cM0, G2, ER: Positive, AR: Positive, HER2: Negative) - Signed by Jeimy Parish MD PhD on 08/16/2018 Clinical:Stage IIA(cT2, cN2b, cM0, G2, ER: Positive, AR: Positive, HER2: Negative) - Signed by Jeimy Parish MD PhD on 08/16/2018 Migraine without aura and wi thout status migrainosus, not intractable Encounters Date Type Department Care Team Description 10/02/2024 12:30 PM OFFICE SECRETARY Infusion [address] [phone] custodial (current) use of aromatase inhibitors (Primary Dx); Malignant neoplasm of upper-outer quadrant of left breast in female, estrogen receptor positive (HCC) 10/02/2024 11:30 AM OFFICE SECRETARY Office Visit [facility] On[facility] [address] [place] [phone] Cristina Espinoza NP Itching (Primary Dx); 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; Malignant neoplasm of upper-outer quadrant of left breast in female, estrogen receptor positive (HCC); Vitamin D insufficiency; Personal history of irradiation 10/02/2024 10:45 AM OFFICE SECRETARY Lab [address] [address] Malignant neoplasm of upper-outer quadrant of left breast in female, estrogen receptor positive (HCC); 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; Vitamin D insufficiency; Personal history of irradiation 10/02/2024 Orders Only [facility] [address] [place] [phone] Cristina Espinoza NP Malignant neoplasm of upper-outer quadrant of left breast in female, estrogen receptor positive (HCC) (Primary Dx); 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; Vitamin D insufficiency from Last 3 Months Immunizations Name Administration Dates Next Due Influenza, Quadrivalent, Sara l Culture-based MDCK, Preservative Free, Antibiotic Free, Intramuscular 08/17/2021,06/20/2020,06/04/2019,07/18 Influenza, Quadrivalent, Spl it, Preservative Free, Intramuscular 06/18/2019 Influenza, Trivalent, Cell Culture-based MDCK, Preservative Free, Antibiotic Free, Intramuscular 07/18/2017 Pfizer SARS-CoV-2 Monovalent Vaccination (12+ Yrs) PURPLE 11/18/2020,10/28/2020 Tdap 10/19/2019 Surgical History Surgery Date Site/Laterality Comments BLADDER SURGERY 09/02/2014 - 09/01/2015 US GUIDED BIOPSY LYMPH NODE SUPERFICIAL LEFT 06/06/2018 N/A BREAST BIOPSY 06/06/2018 Left TUBAL LIGATION 09/02/2011 - 09/01/2012 MASTECTOMY 07/02/2018 BILATERAL SALPINGOOPHORECTOMY Bilateral Medical History Medical History Date Comments Generalized headaches Bronchitis Anxiety Migraines Breast cancer (HCC) 05/16/2018 left Family History Medical History Relation Name Comments No Known Problems Brother Kidney disease Father Breast cancer Father's Sister 1 Uterine cancer Father's Sister 2 Breast cancer Mother Gallbladder disease Mother Melanoma Sister Relation Name Status Comments Brother Alive Father Father's Sister 1 Alive Father's Sister 2 Maternal Grandfather Maternal Grandmother Mother Alive Paternal Grandfather Paternal Grandmother Sister Alive Social History Tobacco Use Types Packs/Day [...] Sexual Orientation Straight 07/20/2020 12 :36 PM OFFICE SECRETARY Obstetrics History Last Filed Vital Signs Vital Sign Reading Time Taken Comments Blood Pressure 96/65 10/02/2024 11:20 AM OFFICE SECRETARY Pulse 90 10/02/2024 11:20 AM OFFICE SECRETARY Temperature 36.8 C (98.3 F) 10/02/2024 11:20 AM OFFICE SECRETARY Respiratory Rate 16 10/02/2024 11:20 AM OFFICE SECRETARY Oxygen Saturation 98% 10/02/2024 11:20 AM OFFICE SECRETARY Inhaled Oxygen Concentration - - Weight 76.3 kg (168 lb 4.8 oz) 10/02/2024 11:20 AM OFFICE SECRETARY Height 165.1 cm (5' 5 ) 10/02/2024 11:20 AM OFFICE SECRETARY Body Mass Index 28.01 10/02/2024 11:20 AM OFFICE SECRETARY Plan of Treatment Health Maintenance Due Date Last Done Comments Breast Cancer Screening-Mammogram 1969 Cervical Cancer Screening 1969 Colon Cancer Screening-Colonoscopy 1969 Depression Screening 1969 Hepatitis C Screening 1969 Pneumococcal vaccine <65 (1 of 2 - PCV) 1975 Hepatitis B Screening 1987 Regular Well Visit/Exam 18-64 1987 Zoster Vaccine (1 of 2) 1988 Covid-19 Vaccine (4 - 2023-2 5 season) 2024 07/11/2021, 11/18/2020, 10/28/2020 DTaP/Tdap/Td Vaccine (2 - Td or Tdap) 10/19/2029 10/19/2019 Influenza Vaccine Completed 09/25/2024, , 06/20/2020, Additional history exists Medical Devices Implanted Type Area Inventory Specialist Device Identifier Shelf Expiration Date Model / Serial / Lot Acelity Lp Inc [id number] Alloderm Perforate Regenerative Thick Medium 132sq Cm Matrix - [id number] Implanted:Qty: 1 on 07/02/2018 by Octavia Jain MD at [facility] Breast Right: Breast [employer] 05/02/2019 [id number] / / [id number] Alloderm Implanted:Qty: 1 on 07/02/2018 by Octavia Jain MD at [facility] Breast Right: Breast Life Cell [employer] 12/30/2018 / / [id number] Alloderm Implanted:Qty: 1 on 07/02/2018 by Octavia Jain MD at [facility] Breast Left: Breast [employer] 09/01/2019 / / [id number] Acelity [employer] [id number] Alloderm Perforate Regenerative Thick Medium 132sq Cm Matrix - [id number] Implanted:Qty: 1 on 07/02/2018 by Octavia Jain MD at [facility] Breast Left: Breast [employer] 04/01/2020 [id number] / / [id number] [employer]er[employer] U[employer] Ssx-700 Natrelle Inspira Smooth Shell Surface Extra Full Profile Implant Latex Free - [id number] - [id number] Implanted:Qty: 1 on 07/02/2018 by Octavia Jain MD at [facility] Breast Left: Breast [employer] 02/03/2023 [id number]-700 / [id number] / [employer] Ssx-700 Natrelle Inspira Smooth Shell Surface Extra Full Profile Implant Latex Free - [id number] - [id number] Implanted:Qty: 1 on 07/02/2018 by Octavia Jain MD at [facility] Breast Right: Breast [employer] SSX-700 / [id number] / Essure Pelvis Description:Essure was a dev [...] Diagnosis Comments EGFR STAT 10/02/2024 11:01 AM OFFICE SECRETARY Malignant neoplasm of upper-outer quadrant of left breast in female, estrogen receptor positive (HCC) 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 VITAMIN D 25 HYDROXY Routine 10/02/2024 11:01 AM OFFICE SECRETARY custodial (current) use of aromatase inhibitors Malignant neoplasm of upper-outer quadrant of left breast in female, estrogen receptor positive (HCC) Vitamin D insufficiency Personal history of irradiation PHOSPHORUS STAT 10/02/2024 11:01 AM OFFICE SECRETARY Malignant neoplasm of upper-outer quadrant of left breast in female, estrogen receptor positive (HCC) custodial (current) use of aromatase inhibitors COMPREHENSIVE METABOLIC PANEL STAT 10/02/2024 11:01 AM OFFICE SECRETARY Malignant neoplasm of upper-outer quadrant of left breast in female, estrogen receptor positive (HCC) 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 73 m2 Comment: [...] of Race in Diagnosing Kidney Disease, JASN 2020). The CKD-EPI equation should not be used for patients with unstable renal function and has not been validated in children and those over 70. Current interpretive data was last reviewed 2021. Blood 10/02/2024 11:0 1 AM OFFICE SECRETARY 10/02/2024 11:01 AM OFFICE SECRETARY us Cristina Espinoza STROBOSCOPE OPERATOR LAB BLOOD ORDERABLES Fi nal Result Performing Organization Address City/[facility]/ZIP Co de Phone Number RADHA [facility] [place] [address] * Vitamin D 25 hydroxy (10/02/2024 11:01 AM OFFICE SECRETARY) Vitamin D 25-OH 55 30 - 80 ng/mL Blood 10/02/2024 11:0 1 AM OFFICE SECRETARY 10/02/2024 12:32 PM OFFICE SECRETARY us Cristina Espinoza STROBOSCOPE OPERATOR LAB BLOOD ORDERABLES Fi nal Result [facility] [place] [address] * Phosphorus (10/02/2024 11:01 AM OFFICE SECRETARY) Pathologist [facility] Phosphorus, pl 3.5 2.3 - 4.5 mg/dL Comment:Testing performed by : [facility], [address] [place] [id number] Blood 10/02/2024 11:0 1 AM OFFICE SECRETARY 10/02/2024 11:01 AM OFFICE SECRETARY Cristina Espinoza STROBOSCOPE OPERATOR LAB BLOOD ORDERABLES nal Result [facility] [place] [address] * Comprehensive metabolic panel (10/02/2024 11:01 AM OFFICE SECRETARY) [facility] Sodium 140 135 - 145 mmol/L Comment:Testing performed by : [facility], [address] [place] [id number] Potassium, pl 4.1 3.3 - 4.9 mmol/L [facility] Chloride 105 97 - 110 mmol/L [facility] CO2 32 22 - 32 mmol/L [facility] Anion gap 3 2 - 15 mmol/L [facility] BUN 12 6 - 25 mg/dL [facility] Creatinine 0.94 0.60 - 1.10 mg/dL [facility] Glucose 88 70 - 199 mg/dL [facility] Comment: Interpretive Data Fasting glucose >/= 126 [...] Calcium 9.8 8.5 - 10.3 mg/dL [facility] Bilirubin, total 0.8 0.1 - 1.2 mg/dL [facility] Protein, pl 7.1 6.5 - 8.5 g/dL [facility] Albumin 4.2 3.5 - 5.0 g/dL [facility] Alk phos 60 40 - 130 Units/L [facility] ALT 14 7 - 45 Units/L [facility] AST 16 10 - 45 Units/L [facility] Blood 10/02/2024 11:0 1 AM OFFICE SECRETARY 10/02/2024 11:01 AM OFFICE SECRETARY us Cristina Espinoza STROBOSCOPE OPERATOR LAB BLOOD ORDERABLES nal Result [facility] [place] [address] from Last 3 Months Insurance [employer] [facility] Advance Directives For more information, please contact: [phone] * Full Code (Latest Code Status on File) Date Activated Date Inactivated Comments 07/02/2018 3:43 PM 07/03/2018 1:23 PM Care Teams Shingle Sawyer Relationship Specialty Start Date End Date Maycol Forbes PA [address] [place] [address] PCP - General Physician Graduate Intern 07/14/24 Jeimy Parish MD PhD [address] [facility] [address] [place] [address] Radiation Oncologist Radiation Oncology 07/18/18 Lily Wisdom MD [address] [place] [address] Referring Physician Surgical Oncology 07/18/18 Cristina Espinoza NP [address] [facility] [place], [place] [id number] Nurse Practitioner Medical Oncology 04/03/24 Octavia Jain MD [address] [place] [address] Referring Physician Plastic Surgery 04/03/24
--- OUTSIDE RECORDS SUMMARY | 2024-10-08 11:34 | XMS_ITS ---
Author Organization [facility] Address [address] [place] [phone] Care Team Providers Care Plate Slitter And Inspector Name Role Phone Jeimy Parish MD PhD Unavailable [phone] Lily Wisdom MD Unavailable [phone] Cristina Espinoza NP Unavailable [phone] Octavia Jain MD Unavailable [phone] Maycol Forbes Primary Care Provider [phone] Active Problems Problem Noted Date Diagnosed Date Itching 10/02/2024 Vitamin D insufficiency 04/06/2024 THOR (obstructive sleep apnea) 04/03/2024 Restless leg syndrome 02/06/2023 Chronic tension-type headache, not intractable 0 10/09/2022 [facility] (current) use of aromatase inhibitors 11/19/2019 Encounter for follow-up exam ination after completed treatment for malignant neoplasm 12/09/2018 History of breast cancer 12/09/2018 Personal history of irradiation 12/09/2018 Malignant neoplasm of upper- outer quadrant of left breast in female, estrogen receptor positive 07/18/2018 Cancer Staging:Pathologic stage from 07/02/2018:Stage IIIA(pT3, pN3b(sn), cM0, G2, ER: Positive, ME: Positive, HER2: Negative) - Signed by Jeimy Parish MD PhD on 08/16/2018 Clinical:Stage IIA(cT2, cN2b, cM0, G2, ER: Positive, ME: Positive, HER2: Negative) - Signed by Jeimy Parish MD PhD on 08/16/2018 Migraine without aura and wi thout status migrainosus, not intractable Current Oncology Plans No current plan information found. Past Plans Line Care Plan Name Start Date Discontinue Date Treatment Medications Discontinue Reason Plan Provider IV Maintenance Therapy Plan 03/29/2023 10/05/2024 No medications scheduled. Therapy Complete Ayse Abdalla MD Oncology Chemotherapy Treatment Plan Name Start Date Discontinue Date Treatment Medications Discontinue Reason Plan Provider Cycles Zoledronic Acid Every 26 Weeks 0 10/05/2024 No medications scheduled. Therapy Complete Cristina Espinoza NP 10 of 10 cycles started Goserelin 28 Day Cycles - Breast 09/04/2019 01/26/2020 goserelin (ZOLADEX) Therapy Complete Carri Yoon MD 1 of 18 cycles completed Goserelin 28 Day Cycles - Breast 9 02/13/2019 goserelin (ZOLADEX) Therapy Complete Carri Yoon MD 4 of 6 cycles completed Oncology Treatment (2) Plan Name Start Date Discontinue Date Treatment Medications Discontinue Reason Plan Provider Cycles Goserelin Every 3 Months - Breast 03/12/2019 09/03/2019 goserelin (ZOLADEX) Provider Discretion Carri Yoon MD 2 of 8 cycles started Specialty Infusion Treatment Plan Name Start Date Discontinue Date Treatment Medications Discontinue Reason Plan Provider Zoledronic Acid (ZOMETA) Infusion 01/28/2020 04/03/2024 No medications scheduled. Provider Discretion Carri Yoon MD Radiation Treatments * Plan Last Treated On Elapsed Days Fractions Treated Prescribed Fraction Dose Prescribed Total Dose L IMLN BOOST 10/14/2018 47 5 200 cGy 1,000 c Gy LT CHESTWALL 10/07/2018 40 28 180 cGy 5,040 c Gy Reference Point Last Treated On Elapsed Days Session Dose Total Dose PTV [id number] 10/14/2018 47 200 cGy 1,000 cGy PTV L CW [id number] 10/07/2018 40 180 cGy 5,040 cG y Lifetime Dose Tracking * Chemical Lifetime Dose Automatic Entry Manual Entr y DLP 406 mGycm 406 mGycm 0 mGycm
--- OUTSIDE RECORDS SUMMARY | 2024-10-08 11:34 | XMS_ITS | Clinical Summary ---
Author Organization [facility] Address [facility] [place] [address] Care Team Providers Care Banana Carrier Name Role Phone Unavailable Primary Care Provider Unavailabl e Allergies Active Allergy Reactions Criticality Noted Date Comments Prochlorperazine Shortness of breath High 09/18/2019 Medications sertraline (ZOLOFT) 50 mg tablet Take 50 mg by mouth daily as directed 0 Active aspirin-acetamin ophen-caffeine (EXCEDRIN MIGRAINE) 250-250-65 mg per tablet Take 1 tablet by mouth every 6 hours as needed Active cholecalciferol, vitamin D3, 5,000 unit tablet,disintegr ating Take by mouth Active SUMAtriptan (IMITREX) 25 mg tablet TAKE ONE Tablet BY MOUTH NEEDED FOR MIGRAINE may REPEAT DOSE IN 2 hours IF no RELIEF max OF 2 doses IN 24 hours 0 Active diclofenac (VOLTAREN) 50 mg EC tabletIndication s:Arthralgia of both hands Take 1 tablet (50 mg total) by mouth 2 (two) times a day With food. 30 tablet 0 Active anastrozole (ARIMIDEX) 1 mg tablet Take 1 mg by mouth daily 0 Active phentermine (ADIPEX-P) 37.5 mg tabletIndication s:Abnormal weight gain,BMI 26.0-26.9,adult, Dietary counseling,Exerc ise counseling 1 tablet in the morning 30 tablet 1 0 Active butalbital-aceta minophen-caff (FIORICET, ESGIC) 50-325-40 mg per tabletIndication s:Migraine without status migrainosus, not intractable, unspecified migraine type,Occipital headache Take 1 tablet by mouth every 12 (twelve) hours as needed for headaches or migraine 30 tablet 0 Active Active Problems Problem Noted Date Diagnosed Date H/O bilateral oophorectomy 10/19/2019 History of bilateral mastectomy 10/19/2019 History of breast cancer 10/19/2019 History of kidney stones 10/19/2019 Immunizations Name Administration Dates Next Due Influenza (IM) Quad PF 06/18/2019 Influenza, Injectable, MDCK PF Quad 07/18/2017 Tdap 10/19/2019 Family History Medical History Relation Comments Heart disease Maternal Grandfather Hypertension Maternal Grandmother Breast cancer Mother Relation Status Comments Maternal Grandfather Maternal Grandmother Mother Social History Tobacco Use Types Packs/Day Years Used Date Smoking Tobacco: Never Smokeless Tobacco: Never Tobacco Cessation:Counseling Given: Yes Alcohol Use Standard Drinks/Week Comments Yes 0 (1 standard drink = 0.6 oz pur e alcohol) occ. PHQ-2 Answer Date Recorded PHQ-2 Score 0 04/04/2020 Comments No Sex and Gender Information Value Date Recorded Sex Assigned at Not on file Legal Sex Female 10:29 AM LEGAL ARCHIVIST Gender Identity Not on file Sexual Orientation Not on file Last Filed Vital Signs Vital Sign Reading Time Taken Comments Blood Pressure 110/78 11/17/2019 10:13 AM CDT Pulse 102 11/17/2019 10:13 AM CDT Temperature 36.8 C (98.3 F) 11/17/2019 10:13 AM CDT Respiratory Rate 18 11/17/2019 10:13 AM CDT Oxygen Saturation 98% 11/17/2019 10:13 AM CDT Inhaled Oxygen Concentration - - Weight 69.4 kg (153 lb) 01/19/2020 3:11 PM CDT Height 162.6 cm (5' 4 ) 01/19/2020 3:11 PM CDT Body Mass Index 26.26 01/19/2020 3:11 PM CDT Plan of Treatment Health Maintenance Due Date Last Done Comments CT Colonography 1969 Colonoscopy 1969 Colorectal Cancer Screening 1969 FIT-DNA 1969 FIT 1969 FOBT 1969 Sigmoidoscopy 1969 Hepatitis B Vaccines (1 of 3 - 19+ 3-dose series) 1988 Pap Smear 04/21/2021 04/21/2018 COVID-19 Vaccine (1 - 2023-2 5 season) 2024 Influenza Vaccine (#1) 2024 9, 07/18/2017, 06/10/2009 DTaP,Tdap,and Td Vaccines (2 - Td or Tdap) 10/19/2029 10/19/2019 Postponed from 11/16/2019 (Insurance / Financial) RSV Vaccines and 60 Years or Older (1 - 1-dose 75+ series) 2044 AMB Pneumococcal 0-64 yrs Aged Out No longer eligible based on patient's age to complete this topic HIB Vaccines Aged Out No longer eligi ble based on patient's age to complete this topic HPV Vaccines Aged Out No longer eligi ble based on patient's age to complete this topic Hepatitis A Vaccines Aged Out No long er eligible based on patient's age to complete this topic IPV Vaccines Aged Out No longer eligi ble based on patient's age to complete this topic MMR Vaccines Discontinued Mammogram Discontinued Meningococcal ACWY Vaccine Aged Out N o longer eligible based on patient's age to complete this topic Meningococcal B Vaccine Aged Out No l onger eligible based on patient's age to complete this topic RSV Vaccines <20 Months Aged Out No l onger eligible based on patient's age to complete this topic Varicella Vaccines Discontinued Insurance [employer]
--- OUTSIDE RECORDS SUMMARY | 2024-10-08 11:34 | XMS_ITS | Patient Health Summary ---
Author Organization [facility] Address [address] [place] [address] Care Team Providers Care Picker Box Operator Name Role Phone Baron Powelldior Dawn ADJUSTER LEADER-SNOWMOBILE MECHANIC Unavailable Mariam Shore ADJUSTER LEADER-SNOWMOBILE MECHANIC Primary Care Provi donal Note from [facility],non-owned Affiliates and Associated Physician Practices is amultiple site organization consisting of ambulatory clinics and hospital sitesin [place], [place], [place] and [place]. This disclosure is being madepursuant to the Care Everywhere program and may not contain all information available regarding this patient. Last updated 18.[facility] Allergies * Prochlorperazine(Shortness of Breath) -High Criticality * Prochlorperazine-Medium Criticality,Inactive Medications * Be aware that medications may not be up to date on this document. Alwaysverify current medications with the patient. * tamoxifen (NOLVADEX) 20 MG tablet Take 20 mg by mouth every evening * sertraline (ZOLOFT) 50 MG tablet Take 50 mg by mouth at bedtime * VITAMIN D, CHOLECALCIFEROL, PO Take 5,000 mg by mouth once daily * goserelin (ZOLADEX) 3.6 MG injection Inject 3.6 mg subcutaneously every 28 days * rivigzd-unxoagjkusjzg-zoknrpuh 250-250-65 MG tablet Take 1 (one) tablet by mouth every 6 hours as needed for Headache * ibuprofen (MOTRIN) 600 MG tablet(Started 09/28/2019) Take 1 tablet by mouth every 6 hours as needed for Pain * Cholecalciferol 1.25 MG (10078 UT)(Started 04/06/2024) Take 50,000 Units by mouth every 7 days * Cholecalciferol (Vitamin D-[address]) 25 MCG (1000 UT) Take 4 (four) tablets by mouth once daily * thyroid ([place] Thyroid) 15 MG tablet Take 1 (one) tablet by mouth once daily * Wegovy 0.25 MG/0.5ML pen(Started 04/03/2024) Inject 0.5 (one-half) mg subcutaneously every 7 days * gabapentin (Neurontin) 300 MG capsule(Started 07/20/2024) Take 1 (one) capsule by mouth at bedtime * Veozah 45 MG tablet(Started 07/09/2024) Take 1 (one) tablet by mouth once daily * buPROPion XL 24hr (Wellbutrin-XL) 150 MG tablet(Started 08/10/2024) Take 2 (two) tablets by mouth once daily * exemestane (Aromasin) 25 MG tablet(Started 05/28/2024) Take 1 (one) tablet by mouth once daily * ketorolac (Toradol) 10 MG tablet Take 1 (one) tablet by mouth as needed (for migraines) * CPAP Use as directed * Fluticasone Propionate (Xhance) 93 MCG/ACT EXHU Marion 93 mcg into the nose as needed (congestion) * ondansetron, disintegrating, (Zofran ODT) 4 MG tablet(Started 09/25/2024) Take 1 (one) tablet by mouth every 6 hours as needed for Nausea/Vomiting Allow tablet to dissolve on the tongue * omeprazole (PriLOSEC) 20 MG capsule(Started 09/25/2024) Take 1 (one) capsule by mouth once daily * tirzepatide (Zepbound) 2.5 MG/0.5ML injection(Started 09/25/2024) Inject 2.5 (two and one-half) mg subcutaneously every 7 days 2 refills by 09/25/2025 Ended Medications* HYDROcodone-acetaminophen (NORCO) 5-325 MG tablet(Started 09/28/2019)(Discontinued) Take 1 tablet by mouth every 6 hours as needed for Pain * HYDROcodone-acetaminophen (NORCO) 5-325 MG tablet(Started 07/15/2021) (Discontinued) Take 1 (one) tablet by mouth every 8 hours as needed for Pain Active Problems Problem Noted Date Diagnosed Date [...] agalactiae infection 09/25/2024 09/25/2024 Varicella 09/25/2024 09/25/2024 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 (AFLURIA, FLUZONE TRIVALENT; 6MO+) (IIV3)(Given 06/10/2009) * Covid [employer] primary monovalent 12+ yr 0.3mL Purple cap(Given 07/11/2021) * INFLUENZA VACCINE, CELL CULTURE, QUADR. (FLUCELVAX QUADRIVALENT; 6MO+) (CCIIV4)(Given 08/17/2021, 06/20/2020, 06/04/2019, 07/18/2017) * INFLUENZA VACCINE, QUADR. (FLUZONE; FLULAVAL; FLUARIX; AFLURIA QUADRIVALENT; 6MO+), 0.5 ML (IIV4)(Given 06/18/2019) * INFLUENZA VACCINE, TRIV. (FLUZONE; FLULAVAL; FLUARIX; AFLURIA TRIVALENT; 6MO+), 0.5 ML (IIV3)(Given 09/25/2024) * TDAP (7yrs+)(Given 10/19/2019) Social History Tobacco Use Types Packs/Day Years [...] Comments Blood Pressure 110/75 09/25/2024 3:33 PM [facility] Pulse 87 09/25/2024 3:33 PM [facility] Temperature 37 C (98.6 F) 09/25/2024 3:33 PM [facility] Respiratory Rate 16 09/28/2019 2:12 PM [facility] Oxygen Saturation 98% 09/25/2024 3:33 PM [facility] Inhaled Oxygen Concentration - - Weight 77.4 kg (170 lb 9.6 oz) 09/25/2024 3:33 P M [facility] Height 165.1 cm (5' 5 ) 09/25/2024 3:33 PM [facility] Body Mass Index 28.39 09/25/2024 3:33 PM [facility] Procedures * XR FOOT RIGHT 3VW OR MORE(Performed 07/15/2021) Performed for Trauma * URIC ACID BLOOD(Performed 07/15/2021) * COMPREHENSIVE METABOLIC PANEL(Performed 07/15/2021) * CBC W AUTO DIFFERENTIAL(Performed 07/15/2021) * GROSS + MICRO EXAM (ILL)(Performed 09/28/2019) Performed for Lobular carcinoma of breast, unspecified laterality (HCC), Pain pelvic * DC HYSTEROSCOPY,W/ENDO BX(Performed 09/28/2019) Performed for Lobular carcinoma of breast, unspecified laterality (HCC), Pain pelvic * DC LAP,RMV ADNEXAL STRUCTURE(Performed 09/28/2019) Performed for Lobular carcinoma of breast, unspecified laterality (HCC), Pain pelvic * BLOOD TYPE VERIFICATION(Performed 09/28/2019) * HCG URINE QUALITATIVE - POCT (IP) BEAKER - ILL(Performed 09/28/2019) Performed for Pain pelvic, Infiltrating duct and lobular carcinoma, unspecified laterality (HCC) * TYPE + SCREEN PANEL(Performed 09/18/2019) Performed for Pain in joint involving pelvic region and thigh, unspecified laterality * CBC W AUTO DIFFERENTIAL(Performed 09/18/2019) Performed for Pain in joint involving pelvic region and thigh, unspecified laterality * COMPREHENSIVE METABOLIC PANEL(Performed 09/18/2019) Performed for Pain in joint involving pelvic region and thigh, unspecified laterality * GROSS + MICRO EXAM (ILL)(Performed 06/17/2015) Performed for Gross hematuria * FL IVP INTRAVENOUS PYELOGRAM(Performed 05/18/2015) Performed for Gross hematuria * CT ABDOMEN PELVIS WWO CONTRAST(Performed 05/18/2015) Performed for Gross hematuria * BASIC METABOLIC PANEL (CALCIUM TOTAL)(Performed 05/18/2015) Performed for Gross hematuria * FL IVP INTRAVENOUS PYELOGRAM(Performed 03/03/2014) Performed for Gross hematuria * CT ABDOMEN PELVIS WWO CONTRAST(Performed 03/03/2014) Performed for Gross hematuria Results * XR FOOT 3+ VW RIGHT [id number] (07/15/2021 10:06 PM [facility]) Anatomical Region Laterality Modality Ankle / Foot Radiographic Shae ging 07/16/2021 7:47 AM [facility] Impressions 07/16/2021 7:47 AM [facility] 1. No fracture. 2. Heel spurs. 3. Hallux valgus. *Reading Radiologist: Michael Barnett on 07/16/2021 at 7:47 AM Narrative 07/16/2021 7:47 AM [facility] EXAM: XR FOOT RIGHT 3VW OR MORE DATE: 07/15/2021 HISTORY: Injury, unspecified, initial encounter. COMPARISON: None. FINDINGS: No acute fractures noted. There is a hallux valgus deformity. Tiny posterior and plantar calcaneal enthesophytes are seen. The joint spaces are overall maintained. Procedure Note Michael Barnett MD - 07/16/2021 EXAM: XR FOOT RIGHT 3VW OR MORE DATE: 07/15/2021 HISTORY: Injury, unspecified, initial encounter. COMPARISON: None. FINDINGS: No acute fractures noted. There is a hallux valgus deformity. Tiny posterior and plantar calcaneal enthesophytes are seen. The joint spaces are overall maintained. IMPRESSION 1. No fracture. 2. Heel spurs. 3. Hallux valgus. *Reading Radiologist: Michael Barnett on 07/16/2021 at 7:47 AM Norm Poe MD DIAGNOSTIC IMAGING ORDERABLES * URIC ACID BLOOD (07/15/2021 9:51 PM [facility]) Uric Acid 5.4 2.6 - 6.0 mg/dL 07/15/2021 10:19 PM [facility] Blood BLOOD SPECIMEN / Unknown Venipuncture / Unknown 07/15/2021 9:51 PM [facility] 07/15/2021 9:55 PM [facility] Norm Poe MD LAB - CHEMISTRY OR DERABLES [facility] [address] * CBC W AUTO DIFFERENTIAL (07/15/2021 9:51 PM [facility]) Only the most recent of2 resultswithin the time period is included. WBC 6.3 4.0 - 10.0 x10E9/L 07/15/2021 9:57 PM [facility] RBC 4.00 3.93 - 5.22 x10E12/L 07/15/2021 9:57 PM [facility] Hemoglobin 12.8 11.2 - 15.7 gm/dL 07/15/2021 9:57 PM [facility] Hematocrit 36.8 34.1 - 44.9 % 07/15/2021 9:57 PM [facility] MCV 92.0 78.0 - 100.0 fl 07/15/2021 9:57 PM [facility] MCH 32.0 25.6 - 34.0 pg 07/15/2021 9:57 PM [facility] MCHC 34.8 32.3 - 36.5 gm/dL 07/15/2021 9:57 PM [facility] RDW 11.8 11.6 - 14.4 % 07/15/2021 9:57 PM [facility] MPV 10.0 9.4 - 12.4 fl 07/15/2021 9:57 PM [facility] Platelet Count 199 163 - 369 x10E9/L 07/15/2021 9:57 PM [facility] Neutrophils % 66.1 40.0 - 75.0 % 07/15/2021 9:57 PM [facility] Lymphocytes % 22.9 19.3 - 53.1 % 07/15/2021 9:57 PM [facility] Monocytes % 7.6 4.7 - 12.5 % 07/15/2021 9:[address] [facility] Eosinophils % 2.9 0.7 - 7.0 % 07/15/2021 9:[address] [facility] Basophils % 0.3 0.1 - 1.2 % 07/15/2021 9:[address] [facility] Immature Granulocytes 0.2 0 - 0.5 % 07/15/2021 9:[address] [facility] Neutrophil Absolute 4.16 1.56 - 6.13 x10E9/L 07/15/2021 9:[address] [facility] Lymphocytes Absolute 1.44 1.18 - 3.74 x10E9/L 07/15/2021 9:[address] [facility] Monocytes Absolute 0.48 0.24 - 0.86 x10E9/L 07/15/2021 9:[address] [facility] Eosinophils Absolute 0.18 0.04 - 0.54 x10E9/L 07/15/2021 9:[address] [facility] Basophils Absolute 0.02 0.01 - 0.08 x10E9/L 07/15/2021 9:57 PM [facility] Immature Granulocytes Absolute 0.01 0 - 0.03 x10E9/L 07/15/2021 9:[address] [facility] nRBC Auto 0 <=0 /100 WBC 07/15/2021 9:57 PM [facility] nRBC Absolute 0.00 <=0 x10E9/L 07/15/2021 9:[address] [facility] Blood BLOOD SPECIMEN / Unknown Venipuncture / Unknown 07/15/2021 9:51 PM [facility] 07/15/2021 9:55 PM [facility] Norm Poe MD LAB - HEMATOLOGY O RDERABLES [facility] [address] [place], [place] [id number] [place] [address] * (ABNORMAL) COMPREHENSIVE METABOLIC PANEL (07/15/2021 9:51 PM [facility]) Only the most recent of2 resultswithin the time period is included. Glucose 94 70 - 125 mg/dL 07/15/2021 10:19 PM [facility] Sodium 140 136 - 145 mmol/L 07/15/2021 10:[address] [facility] Potassium 3.5 3.4 - 4.5 mmol/L 07/15/2021 10:[address] [facility] Chloride 104 98 - 107 mmol/L 07/15/2021 10:[address] [facility] CO2 25 22 - 29 mmol/L 07/15/2021 10:[address] [facility] Calcium 9.35 8.4 - 10.2 mg/dL 07/15/2021 10:[address] [facility] Anion Gap 15 10 - 20 mmol/L 07/15/2021 10:[address] [facility] BUN 20.3(H) 9.8 - 20.1 mg/dL 07/15/2021 10:[address] [facility] Creatinine 0.88 0.57 - 1.11 mg/dL 07/15/2021 10:[address] [facility] eGFR by MDRD >60 >60 mL/min/1.7 3m2 07/15/2021 10:19 PM [facility] eGFR by MDRD >60 >60 mL/min/1.7 3m2 07/15/2021 10:19 PM [facility] Alkaline Phosphatase 53 40 - 150 U/L 07/15/2021 10:19 PM [facility] ALT 14 5 - 55 U/L 07/15/2021 10:19 PM [facility] AST 20 5 - 34 U/L 07/15/2021 10:19 PM [facility] Protein Total 6.6 6.4 - 8.3 gm/dL 07/15/2021 10:19 PM [facility] Albumin 3.6 3.5 - 5.0 gm/dL 07/15/2021 10:19 PM [facility] Globulin Total 3.0 2.6 - 4.0 gm/dL 07/15/2021 10:19 PM [facility] Albumin/Globulin Ratio 1.2 0.9 - 1.6 07/15/2021 10:19 PM [facility] Bilirubin Total 0.8 0.2 - 1.2 mg/dL 07/15/2021 10:19 PM [facility] Blood BLOOD SPECIMEN / Unknown Venipuncture / Unknown 07/15/2021 9:51 PM [facility] 07/15/2021 9:55 PM [facility] Norm Poe MD LAB - CHEMISTRY OR DERABLES Performing Organization Address City/State/[facility] Co de Phone Number [facility] [address] * GROSS + MICRO EXAM (ILL) (09/28/2019 12:29 PM [facility]) Only the most recent of2 resultswithin the time period is included. Case Report Surgical Pathology Report Case: [id number] Authorizing Provider: Marcelo Lin MD Collected: 09/28/2019 12:29 PM Ordering Location: [facility] Received: 09/28/2019 01:52 PM Pathologist: Breezy Garcia MD Specimens: A) - Endometrium Curettings B) - Ovary with Tube, bilateral ovaries and tubes 09/29/2019 12:13 PM [facility] Final Diagnosis A. ENDOMETRIAL CURETTINGS: - FRAGMENTS OF SUPERFICIAL ENDOMETRIUM WITH COMPACT ENDOMETRIAL STROMA AND A FEW SCATTERED GLANDS, SEE COMMENT. - DETACHED FRAGMENTS OF ENDOMETRIAL AND ENDOCERVICAL EPITHELIUM WITH NO SIGNIFICANT HISTOPATHOLOGIC CHANGES. COMMENT: The fragments of superficial endometrium could be related to a Tamoxifen associated polyp. Clinical correlation required. B. FALLOPIAN TUBES, RIGHT AND LEFT: - NO SIGNIFICANT HISTOPATHOLOGIC CHANGES. C. OVARIES, RIGHT AND LEFT: - NO SIGNIFICANT HISTOPATHOLOGIC CHANGES. RNS/scs 09/29/2019 12:[address] [facility] Microscopic Description and Comment Microscopic examination is performed and substantiates the above diagnosis. 09/29/2019 12:[address] [facility] Clinical History Lobular carcinoma of breast, unspecified laterality, pelvic pain 09/29/2019 12:[address] [facility] Gross Description Two specimens are received in formalin labeled, Tamara Jones. A. Additionally labeled, endometrium curettings, are multiple pink and clear, soft, irregular tissue fragments with an aggregate measurement of 1.5 x 0.5 x 0.15 cm which is strained and entirely submitted in A1. B. Additionally labeled, ovary with tube, bilateral ovary and tubes, are two pink-arambula, fimbriated fallopian tubes with attached cerebriform ovary weighing in aggregate 11.2 grams. The first ovary measures 2.6 x 1.7 x 0.9 cm and has an unremarkable pink-arambula cut surface. This pink fimbriated fallopian tube measures 6.2 x 0.6 x 0.6 cm. The cut surface has the expected appearance without masses or lesions. Occupational Therapy Instructor sections of the fallopian tube and the fimbriated end are submitted in B1, bilingual call center representative sections of the ovary are submitted in B2. The second cerebriform ovary in the container measures 3.2 x 1.7 x 1.3 cm and has an unremarkable cut surface. The attached fallopian tube measures 6.0 x 0.6 x 0.6 cm and has an unremarkable cut surface. Sections of this fallopian tube and ovary, including the fimbriated end, are submitted in B3. Sections of this ovary are submitted in B4. LS/na 09/29/2019 12:[address] [facility] Disclaimer The performance characteristics of all immunohistochemical and indirect immunofluorescence stains (if any) cited in this report were determined by the [facility] Laboratory of [facility]. Some of these tests were developed by our own laboratory and have not been cleared or approved by the US Food and Drug Administration. The FDA does not require this test to go through premarket FDA review. These tests are used for clinical purposes. They should not be regarded as investigational or for research. This laboratory is certified under the Clinical Laboratory Improvement Amendments (CLIA) as qualified to perform high complexity clinical laboratory testing. This case was interpreted by the [facility] Department of Pathology. When applicable, select reference laboratory testing is performed at the [facility], [address] [place] [id number]. 09/29/2019 12:13 PM [facility] Embedded Images 09/29/2019 12:13 PM [facility] Pathology/Cytology SPECIMEN FROM ENDOMETRIUM OBTAINED BY CURETTAGE / Unknown 09/28/2019 12:29 PM [facility] 09/28/2019 1:52 PM [facility] Comment:Pre-op diagnosis: Lobular carcinoma of breast, unspecified laterality [C50.919] Pain pelvic [R10.2] Miscellaneous samples (specimen) FALLOPIAN TUBE AND OVARY, CS / Unknown 09/28/2019 12:32 PM [facility] 09/28/2019 1:52 PM [facility] Comment:Pre-op diagnosis: Lobular carcinoma of breast, unspecified laterality [C50.919] Pain pelvic [R10.2] Marcelo Lin MD LAB - PATHOLOGY/CYTO LOGY ORDERABLES [facility] [address] * BLOOD TYPE VERIFICATION (09/28/2019 9:00 AM [facility]) Pathologist [facility] [place] ABO A 09/28/2019 11:00 AM [facility] Rh Type Negative 09/28/2019 11:00 AM [facility] Blood Bank BLOOD SPECIMEN / Unknown Lab Venipuncture / Unknown 09/28/2019 9:00 AM [facility] 09/28/2019 10:19 AM [facility] Marcelo Lin MD LAB - BLOOD BANK ORD ERABLES Performing Organization Address City/[facility]/ZIP Co de Phone Number [facility] [address] * HCG URINE QUALITATIVE - POCT (IP) BEAKER - ILL (09/28/2019 8:49 AM [facility]) Pathologist [facility] [place] HCG Qual Urine Negative Negative AM POCT TESTING Lot # [id number] [facility] Expiration Date 2021-03-01 [facility] QC Verified Yes Yes [facility] POC T TESTING Urine URINE / Unknown 09/28/2019 8 :49 AM [facility] Marcelo Lin MD LAB - POINT OF CARE ORDERABLES Performing Organization Address [facility] Co de Phone Number [facility] [address] * TYPE + SCREEN PANEL (09/18/2019 10:31 AM [facility]) ABO A 09/18/2019 11:36 AM [facility] Rh Type Negative 09/18/2019 11:36 AM [facility] Comment:History checked. Col lect retype. Antibody Screen Negative 09/18/2019 11:36 AM [facility] Blood Bank BLOOD SPECIMEN / Unknown Venipuncture / Unknown 09/18/2019 10:31 AM [facility] 09/18/2019 10:42 AM [facility] Marcelo Lin MD LAB - BLOOD BANK ORD ERABLES Performing Organization Address [facility] Co de Phone Number [facility] [address] * [place] IVP [id number] (05/18/2015 9:07 AM CDT) Only the most recent of2 resultswithin the time period is included. Anatomical Region Laterality Modality Abdomen Radio Fluoroscop y 05/18/2015 9:20 AM CDT Impressions 05/18/2015 9:28 AM CDT Negative intravenous urogram. Narrative 05/18/2015 9:28 AM CDT IVP 05/18/2015 CLINICAL HISTORY: Gross hematuria. FINDINGS: Moderate retained colonic stool. Unremarkable intestinal gas pattern. Intravenous urogram reveals normally functioning of both kidneys. No evidence of hydronephrosis. Ureters are nondilated. Bladder is unremarkable. Post void study does not demonstrate evidence of obstruction. Procedure Note Josafat Anaya MD - 05/18/2015 IVP 05/18/2015 CLINICAL HISTORY: Gross hematuria. FINDINGS: Moderate retained colonic stool. Unremarkable intestinal gas pattern. Intravenous urogram reveals normally functioning of both kidneys. No evidence of hydronephrosis. Ureters are nondilated. Bladder is unremarkable. Post void study does not demonstrate evidence of obstruction. IMPRESSION Negative intravenous urogram. Marcelo Hicks MD FLUOROSCOPY ORDERABL ES * CT ABDOMEN AND PELVIS W WO IV CONT [id number] (05/18/2015 8:53 AM CDT) Only the most recent of2 resultswithin the time period is included. Anatomical Region Laterality Modality Abdomen, Pelvis Computed Tomogra phy 05/18/2015 9:22 AM CDT Impressions 05/18/2015 9:28 AM CDT 1. Tiny nonobstructing right-sided nephroliths. 2. No evidence of solid or cystic renal mass lesion. 3. Normally functioning both kidneys. 4. Nondilated ureters. 5. Unremarkable bladder. 6. 3 cm sized right ovarian cyst. 7. Constipation. 8. No focal intra-abdominal or pelvic mass. 9. No evidence of small bowel obstruction. Narrative 05/18/2015 9:[address] OF THE ABDOMEN AND PELVIS (05/18/2015) CLINICAL HISTORY: Gross hematuria. CONTRAST: 98 mL Omnipaque 300 IV. COMPARISON: 03/03/2014. FINDINGS: Clear lung bases. No intrahepatic ductal dilatation or mass lesions. Spleen is unremarkable. Adrenal glands and pancreas are normal. No gallstones. Tiny submillimeter sized calculus mid polar region of right kidney. No evidence of hydronephrosis or obstruction. Both kidneys are normally functioning. No solid or cystic renal mass lesion. Constipation. Nondilated ureters. Bladder is unremarkable. Unremarkable appendix. 3 cm sized right ovarian cyst is noted. No free fluid or lymphadenopathy. Procedure Note Josafat Anaya MD - 05/18/2015 CT OF THE ABDOMEN AND PELVIS (05/18/2015) CLINICAL HISTORY: Gross hematuria. CONTRAST: 98 mL Omnipaque 300 IV. COMPARISON: 03/03/2014. FINDINGS: Clear lung bases. No intrahepatic ductal dilatation or mass lesions. Spleen is unremarkable. Adrenal glands and pancreas are normal. No gallstones. Tiny submillimeter sized calculus mid polar region of right kidney. No evidence of hydronephrosis or obstruction. Both kidneys are normally functioning. No solid or cystic renal mass lesion. Constipation. Nondilated ureters. Bladder is unremarkable. Unremarkable appendix. 3 cm sized right ovarian cyst is noted. No free fluid or lymphadenopathy. IMPRESSION 1. Tiny nonobstructing right-sided nephroliths. 2. No evidence of solid or cystic renal mass lesion. 3. Normally functioning both kidneys. 4. Nondilated ureters. 5. Unremarkable bladder. 6. 3 cm sized right ovarian cyst. 7. Constipation. 8. No focal intra-abdominal or pelvic mass. 9. No evidence of small bowel obstruction. Marcelo Hicks MD CT ORDERABLES * BASIC METABOLIC PANEL (CALCIUM TOTAL) (05/18/2015 8:06 AM CDT) Pathologist [facility] [place] Glucose 96 70 - 125 mg/dL 05/18/2015 8:41 AM CDT [facility] Sodium 141 136 - 145 mmol/L 05/18/2015 8:41 AM CDT [facility] Potassium 3.8 3.4 - 4.5 mmol/L 05/18/2015 8:41 AM CDT [facility] Chloride 105 98 - 107 mmol/L 05/18/2015 8:41 AM CDT [facility] CO2 25 22 - 29 mmol/L 05/18/2015 8:41 AM CDT [facility] Calcium 9.21 8.4 - 10.2 mg/dL 05/18/2015 8:41 AM CDT [facility] Anion Gap 15 10 - 20 mmol/L 05/18/2015 8:41 AM CDT [facility] BUN 10.1 9.8 - 20.1 mg/dL 05/18/2015 8:41 AM CDT [facility] Creatinine 0.77 0.57 - 1.11 mg/dL 05/18/2015 8:41 AM CDT [facility] eGFR by MDRD >60 >60 mL/min/1.7 3m2 05/18/2015 8:41 AM CDT [facility] eGFR by MDRD >60 >60 mL/min/1.7 3m2 05/18/2015 8:41 AM CDT [facility] Blood BLOOD SPECIMEN / Unknown Venipuncture / Unknown 05/18/2015 8:06 AM CDT 05/18/2015 8:15 AM CDT Marcelo Hicks MD LAB - CHEMISTRY [facility] Organization Address City/State/ZIP Co de Phone Number [facility] [address] [place] [address], [facility] Care Teams Picker Box Operator Relationship Specialty Start Date End Date Mariam Shore APRN-ERIBERTO [address] [place], [place] [id number] PCP - General Nurse Practitioner 09/25/24 Alondra Powell APRN-SNOWMOBILE MECHANIC [address] [id number] 07/15/21
--- OUTSIDE RECORDS SUMMARY | 2024-10-08 11:34 | XMS_ITS | Encounter Summary ---
Author Organization [facility] Address [address] [place] [address] Phone Care Team Providers Care Manager Ent Name Role Phone Jeimy Parish MD PhD Unavailable [phone] Lily Wisdom MD Unavailable [phone] Carri Yoon MD Unavailable [phone] Mariam Castillo NP Primary Care Provider [phone] Maycol Forbes Primary Care Provider [phone] Cristina Espinoza NP Unavailable [phone] Cristina Espinoza NP Unavailable [phone] Octavia Jain MD Unavailable [phone] Maycol Forbes Primary Care Provider [phone] Encounter Details Date Type Department Care Team (Latest Contact Info) Description 10/19/2022 Orders Only [facility] Scanning, Provider Social History Tobacco Use Types Packs/Day Years [...] Sexual Orientation Straight 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 documented as of this encounter Plan of Treatment Not on file documented as of this encounter Procedures Procedure Name Priority Date/Time Associated Diagnosis Comments SCAN - PATHOLOGY 10/19/2022 documented in this encounter Results * SCAN - PATHOLOGY (10/19/2022) Provider Scanning Edited Result - Final documented in this encounter Visit Diagnoses Not on filedocumented in this encounter Care Teams Manager Ent Relationship Specialty Start Date End Date Mariam Castillo NP [address] [place] [address] PCP - General Nurse Practitioner 03/28/21 02/05/23 Maycol Forbes PA [address] [place] [address] PCP - General Physician Air Defense Artillery Officer 02/06/23 07/13/24 Maycol Forbes PA [address] [place] [address] PCP - General Physician Air Defense Artillery Officer 07/14/24 Jeimy Parish MD PhD [address] [facility] [address] [place] [address] Radiation Oncologist Radiation Oncology 07/18/18 Lily Wisdom MD [address] [place] [address] Referring Physician Surgical Oncology 07/18/18 Carri Yoon MD [address] [place] [address] Medical Oncologist/Biofuels Engineering Manager Medical Oncology 12/09/18 06/17/23 Cristina Espinoza NP [address] [place] [address] Nurse Practitioner Medical Oncology 04/03/24 04/03/24 Cristina Espinoza NP [address] [place] [address] Nurse Practitioner Medical Oncology 04/03/24 Octavia Jain MD [address] [facility] [address] [place] [address] Referring Physician Plastic Surgery 04/03/24 documented as of this encounter
[2024-10-08 11:37] VITALS: BP 111/68; PULSE 90; RESP 18; TEMP 36.5; O2SAT 100
--- NOTE | 2024-10-08 11:37 | ED_ITS ---
HPI - URI/Sore Throat General Chief Complaint: Upper Respiratory Infection Stated Complaint: COUGH Time Seen by Provider: 10/08/24 11:05 Source: patient Mode of arrival: ambulatory Limitations: no limitations History of Present Illness HPI Narrative: Patient is a 54-year-old female who presents with cough, headache, sinus pain/pressure, congestion for 2 days. Symptoms worsened today. Denies any fever, chills, nausea, vomiting, diarrhea. Has taken ibuprofen. Related Data Home Medications ?Medication ?Instructions ?Recorded ?Confirmed ?Last Taken ?Type bupropion HCl 150 mg 24 hr tablet, mg PO 10/08/24 Unknown History extended release exemestane 25 mg tablet mg 10/08/24 Unknown History fezolinetant 45 mg tablet (Veozah) mg PO 10/08/24 Unknown History gabapentin 300 mg capsule mg 10/08/24 Unknown History Allergies Allergy/AdvReac Type Severity Reaction Status Date / Time prochlorperazine (From Allergy Mild Other Verified 10/08/24 11:40 Compazine) Review of Systems Review of Systems: All systems reviewed & are unremarkable except as noted in HPI and below Constitutional: Constitutional: Denies chills, Denies fatigue, Denies fever(s), Reports headache(s), Denies malaise and Denies weakness Eyes: Eyes: Denies blurry vision, Denies itchy eyes and Denies loss of vision ENT: Denies otalgia, Reports headache(s), Reports nasal congestion, Denies sinus pain, Reports sinus pressure and Denies sore throat Cardiovascular: Cardiovascular: Denies chest pain, Denies irregular heart rhythm and Denies dyspnea Respiratory: Respiratory: Reports cough and Denies dyspnea Gastrointestinal: Gastrointestinal: Denies abdominal pain, Denies diarrhea, Denies nausea and Denies vomiting Musculoskeletal: Musculoskeletal: Denies back pain, Denies myalgias and Denies arthralgias Integumentary/Breasts: Skin/Breast: Denies pruritus and Denies rash Neurologic: Reports headache(s), Denies loss of vision and Denies weakness Psychiatric: Psychiatric: Reports no additional psychiatric complaints Endocrine: Endocrine: Denies fatigue Allergic/Immunologic: Allergic/Immunologic: Denies itchy eyes PMFSH Comments At time of signature, agree with nursing past medical, surgical, social and family history. There is no relevant family history pertinent to the presenting complaint. Exam Const: General: cooperative, healthy appearing, comfortable, no acute distress and well nourished Nutritional Appearance: well nourished Orientation/consciousness: patient oriented x3 Limitations: no limitations HENMT: Head: normal to inspection, normocephalic and atraumatic Ears: hearing grossly normal bilaterally, external ears normal, TM's normal bilaterally, EAC's normal and no periauricular adenopathy Face/Nose/Sinus: Normal external nose present, Abnormal mucous membranes and turbinates present erythematous bilateral and diffuse, normal facial exam, sinuses nontender and f mayra symmetric Face and sinus: normal facial exam, sinuses nontender and face symmetric Mouth: Yes Normal oral and palatal mucosa present, Yes lip normal, Yes tongue normal, Yes Normal salivary glands and ducts present, Yes oropharynx normal and Yes moist mucous membranes Teeth and gingiva: dentition normal Throat: posterior oropharynx normal, tonsils normal and uvula midline Eyes: General: appearance normal, both eyes and all related structures Alignment and Position: alignment normal and position normal Periorbital: periorbital findings normal Eyelids: eyelids normal Pupils: Equal, round and reactive pupils present Neck: Neck: normal visual inspection, full ROM, no lymphadenopathy and supple Chest: Chest palpation & inspection: normal inspection of the chest and normal palpation of entire chest wall Resp: Effort & Inspection: normal respiratory effort and able to speak in complete sentences Auscultation: clear to auscultation bilaterally, no crackles, no rales, no rhonchi and no wheezes Cardio: Rate: regular rate Rhythm: regular rhythm Heart sounds: S1 normal heart sound present and S2 normal heart sound present GI: Inspection: normal to inspection Skin: General skin exam: normal color and no rashes or lesions noted Neuro: General: patient oriented x3 and moves all extremities Cranial nerves: Yes Equal, round and reactive pupils present Speech: normal speech Gait exam (Neuro): Normal gait present Extrem: General: normal to inspection, full ROM and no edema Psych: Appearance: grossly normal and well kempt Mental Status: mental status grossly normal Speech and movement: Normal speech and movement present Affect: normal affect Attitude: cooperative Thought process: Normal thought process present Course Course Emergency Course: Discharge instructions reviewed with patient, as well as provided in writing per nursing staff. The instructions also include specific and strict return/GO TO THE ER as well as f/u information. All questions have been answered, and the patient deny any further questions with discharge and discharge plan. Portions of this record may have been created with voice recognition software Level of Care: Express Care Visit Vital Signs Vital signs: Vital Signs Temperature 36.5 C 10/08/24 11:37 Pulse Rate 90 10/08/24 11:37 Respiratory Rate 18 10/08/24 11:37 Blood Pressure 111/68 10/08/24 11:37 Pulse Oximetry 100 10/08/24 11:37 Oxygen Delivery Room Air 10/08/24 11:37 Temperature 36.5 C 10/08/24 11:37 Pulse Rate 90 10/08/24 11:37 Respiratory Rate 18 10/08/24 11:37 Blood Pressure 111/68 10/08/24 11:37 Pulse Oximetry 100 10/08/24 11:37 Oxygen Delivery Room Air 10/08/24 11:37 Reviewed MDM - URI/Sore Throat MDM Narrative Medical decision making narrative: Pt well hydrated appearing, in no respiratory distress, hemodynamically stable. Recommend supportive care. The patient is stable at time of discharge the clinical impression was discussed and the patient was given the opportunity to ask questions, which were addressed as completely as possible given the information available at present. Anticipatory guidance and return to care precautions were discussed and the importance of primary care follow-up was stressed and encouraged. The patient voiced understanding of the plan, indications to return, and the need for follow-up. Differential diagnosis considered: Robert virus, strep pharyngitis, allergic rhinitis, upper respiratory tract infection, sinusitis, rhinosinusitis, nasopharyngitis. viral pharyngitis, otitis media, otitis externa, otitis effusion, foreign body, cerumen impaction, viral syndrome, and influenza.? Exam findings show no acute concerns or changes; patient is non-toxic appearing and is in no distress.? Patient is appropriate for outpatient treatment and follow- up.? Lab Data Attestation: I reviewed the patient's lab results. Labs: Lab Results 10/08/24 Range/Units 12:05 POC Influenza A Ag Negative (Negative) POC Influenza B Ag Negative (Negative) POC SARS CoV-2 Ag Negative (Negative) Discharge Plan Discharge Clinical Impression: Upper respiratory infection Qualifiers: URI type: unspecified viral URI Qualified Code(s): J06.9 - Acute upper respiratory infection, unspecified Patient Disposition: Home, Self-Care Condition: Stable Instructions: Upper Respiratory Infection (ED) Additional Instructions: Your rapid strep swab was negative today at [facility]. A throat culture will be sent to the laboratory for further testing. If the test is positive, you will receive a phone call within 48 hours and an appropriate antibiotic will be initiated at that time. Your Covid and flu are both negative Your symptoms are likely due to a viral illness, which is not treated with antibiotics. Viral symptoms can be present for up to a few weeks. -For pain/fever, you may take: Tylenol 650-1000mg by mouth every 4-6 hours. Do not exceed 4000mg in 24 hours. Advil (Ibuprofen) 600 mg by mouth every 6 hours. Do not exceed 2400mg in 24 hours. 8 AM: Tylenol 11 AM: Ibuprofen 2 PM: Tylenol 5 PM: Ibuprofen 8 PM: Tylenol 11 PM: Ibuprofen 2 AM: Tylenol 5 AM: Ibuprofen -Antihistamine medication such as Benadryl/Zyrtec at night and Claritin/Gaby during the day can help improve symptoms. -Use Flonase twice a day for 5 days then daily to help reduce the inflammation and dry up your sinuses. -You can also use Sudafed behind the pharmacy counter(12 or 24 hour). Be sure to drink plenty of water with these medications at least 8 ounces with every dose and it is important to drink 8 to 10 glasses of water per day. Water is a natural decongestant -Eat and drink things that are easy to swallow, like tea or soup, or popsicles. -Oral rinses such as: Salt water gargles and/or may use topical anesthetic (eg. Chloraseptic spray) or lozenges to relieve dryness or throat pain). 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 -Using a vaporizer or humidifier at night will also help thin secretions and he lp with coughing up phlegm. -Follow up with primary care provider in 3-5 days if condition is not improving - For new or worsening symptoms go directly to the nearest ER Patient Language: Egyptian Prescriptions: New fluticasone propionate [Flonase Allergy Relief] 50 mcg/actuation spray,suspension 1 spray intranasal DAILY Qty: 16 0RF Rx Instructions: administer into each nostril No Action exemestane 25 mg tablet gabapentin 300 mg capsule bupropion HCl 150 mg tablet extended release 24 hr PO Veozah 45 mg tablet PO Follow-up/Referrals: Silviano,Mariam [Other] - 3 Days Stand Alone Forms: Work/School Release IP Time of Disposition: 12:07
[2024-10-08 12:06] LABS: EDCOVIDSCREEN Negative (Negative); EDINFLUASCREEN Negative (Negative); EDINFLUBSCREEN Negative (Negative)
== END 2024-10-08 12:10 | disposition home or self-care (01) ==
PROVIDERS: Emergency Provider Nurse Practitioner Family
DX: J06.9 Acute upper respiratory infection, unspecified (principal); Z20.822 Contact with and (suspected) exposure to COVID-19; Z85.3 Personal history of malignant neoplasm of breast
CPT/HCPCS: 87426; 87804; 99203; G0463